=== PATIENT | female | born 1975 | race Hispanic/Latino ===

== ENCOUNTER 2020-07-23 11:59 | Inpatient (IN) | payer OTHER ==
[~2020-07-23] VITALS: Ht 157.5 cm; Wt 169.1 kg
[2020-07-23] MEDS ORDERED: ONDANSETRON HCL 4 MG/2 ML VIAL ONE (12:34)
[2020-07-23] MEDS ORDERED: PHENAZOPYRIDINE HCL 200 MG TABLET ONE (12:34)
[2020-07-23 12:37] LABS: APPEARANCE,URINE CLOUDY (CLEAR); BILIRUBIN,URINE SMALL (NEGATIVE); COLOR,URINE YELLOW (YELLOW); GLUCOSE, URINE (UA) NEGATIVE (NEGATIVE); KETONES,URINE 5 mg/dL (NEGATIVE); LEUKOCYTE ESTERASE ,URINE MODERATE (NEGATIVE); NITRATE,URINE POSITIVE (NEGATIVE); OCCULT BLOOD,URINE MODERATE (NEGATIVE); PROTEIN,URINE 30 mg/dL (NEGATIVE)
[2020-07-23 12:58] LABS: BASOPHILS % (AUTO) 0.5 % (0.0-5.0); LYMPHOCYTES % (AUTO) 7.3 % (21.0-51.0); MEAN CORPUSCULAR HEMOGLOBIN 21.5 pg (27.0-33.0); MEAN CORPUSCULAR VOLUME 71.6 fL (79-99); MONOCYTES % (AUTO) 5.8 % (3.0-13.0); NEUTROPHILS % (AUTO) 85.1 % (40.0-77.0); PLATELET COUNT (AUTO) 465 K/uL (130-400); RED BLOOD CELL COUNT(AUTO) 4.19 MIL/uL (4.00-5.50); RED CELL DISTRIBUTION WIDTH 18.6 % (11.0-15.5)
[2020-07-23 13:08] LABS: POTASSIUM 3.7 mmol/L (3.5-5.1)
[2020-07-23] MEDS ORDERED: IOHEXOL-350 75 ML VIAL IV ONE (13:17)
[2020-07-23 13:19] LABS: ALBUMIN 2.2 g/dL (3.5-5.0); BILIRUBIN,TOTAL 0.7 mg/dL (0.2-1.0); TOTAL PROTEIN, SERUM 7.8 g/dL (6.0-8.3)
[2020-07-23 13:19] LABS: BACTERIA,URINE Many /HPF (None Seen); MUCUS,URINE Few LPF (None Seen); RBC,URINE 26-50 /HPF (0-1); SQUAMOUS EPITHELIAL CELL,UR 30-50 /HPF (0-2); WBC,URINE >100 /HPF (0-1)
[2020-07-23] MEDS ORDERED: ZOSYN 3.375GM+NS 50ML 50 ML IV ONE (14:14)
[2020-07-23] MEDS ORDERED: ACETAMINOPHEN 325 MG TAB PO PRN (19:00)
[2020-07-23 19:29] LABS: HEMOGLOBIN A1C 5.9 % (4.0-6.0)
[2020-07-23] MEDS ORDERED: ACETAMINOPHEN 325 MG TAB ONE (20:21)
[2020-07-23 21:40] VITALS: BP 113/56
[2020-07-23] MEDS: ZOSYN 3.375GM+NS 50ML 50 ML IV SCH (21:54)
[2020-07-23] MEDS: FAMOTIDINE/PF 20 MG/2 ML VIAL IV SCH (21:55)
[2020-07-24] VITALS: BP 139/68
[2020-07-24 04:00] VITALS: BP 120/75
[2020-07-24] MEDS: ZOSYN 3.375GM+NS 50ML 50 ML IV SCH ×3 (05:16→19:50)
[2020-07-24 06:08] LABS: BASOPHILS % (AUTO) 0.6 % (0.0-5.0); EOSINOPHILS % (AUTO) 0.1 % (0.0-8.0); HEMATOCRIT 26.5 % (36-48); MEAN CORPUSCULAR HEMOGLOBIN 21.6 pg (27.0-33.0); MEAN CORPUSCULAR HGB CONC 30.2 g/dL (32.0-36.0); MEAN CORPUSCULAR VOLUME 71.4 fL (79-99); MONOCYTES % (AUTO) 6.2 % (3.0-13.0); PLATELET COUNT (AUTO) 429 K/uL (130-400); RED BLOOD CELL COUNT(AUTO) 3.71 MIL/uL (4.00-5.50); RED CELL DISTRIBUTION WIDTH 18.3 % (11.0-15.5)
[2020-07-24 06:27] LABS: CREATININE 0.8 mg/dL (0.5-1.5); POTASSIUM 3.7 mmol/L (3.5-5.1)
[2020-07-24 06:31] LABS: ALBUMIN 1.9 g/dL (3.5-5.0); BILIRUBIN,TOTAL 0.5 mg/dL (0.2-1.0); TOTAL PROTEIN, SERUM 7.2 g/dL (6.0-8.3)
[2020-07-24 06:35] LABS: % IRON SATURATION 5.2 % (22-44)
[2020-07-24 08:00] VITALS: BP 125/54
[2020-07-24 08:55] LABS: INR 1.29 (0.85-1.15); PROTHROMBIN TIME 13.5 SEC (9.6-11.6)
[2020-07-24 08:56] LABS: PARTIAL THROMBOPLASTIN TIME 27.6 SEC (26.3-35.5)
[2020-07-24] MEDS: FAMOTIDINE/PF 20 MG/2 ML VIAL IV SCH ×2 (09:00→19:50)
[2020-07-24] MEDS ORDERED: ENOXAPARIN SODIUM 40 MG/0.4 ML SYRINGE SQ SCH (09:00)
[2020-07-24 11:00] VITALS: BP 142/75
[2020-07-24] MEDS: MORPHINE SULFATE 2 MG/ML 1ML SYG IV PRN ×2 (14:10→21:19)
[2020-07-24 16:00] VITALS: BP 127/75
[2020-07-24 16:32] LABS: BASOPHILS % (AUTO) 0.5 % (0.0-5.0); EOSINOPHILS % (AUTO) 0.2 % (0.0-8.0); HEMATOCRIT 26.4 % (36-48); LYMPHOCYTES % (AUTO) 11.7 % (21.0-51.0); MEAN CORPUSCULAR HEMOGLOBIN 21.7 pg (27.0-33.0); MEAN CORPUSCULAR HGB CONC 29.9 g/dL (32.0-36.0); MEAN CORPUSCULAR VOLUME 72.5 fL (79-99); MONOCYTES % (AUTO) 5.6 % (3.0-13.0); NEUTROPHILS % (AUTO) 80.2 % (40.0-77.0); NUCLEATED RED BLOOD CELLS 0.1 % (0.0-0.19); PLATELET COUNT (AUTO) 403 K/uL (130-400); RED BLOOD CELL COUNT(AUTO) 3.64 MIL/uL (4.00-5.50); RED CELL DISTRIBUTION WIDTH 18.8 % (11.0-15.5)
[2020-07-24] MEDS: LACTATED RINGERS 1000ML 1,000 ML IV SCH (16:37)
[2020-07-24 17:04] LABS: ABG BASE EXCESS -1.4 mmol/L (-2.0-3.0); ABG OXYGEN SATURATION 96.2 % (95.0-99.0); ABG PCO2 32 mmHg (32-45)
[2020-07-24 17:37] LABS: LYMPHOCYTES % (MANUAL) 13 % (22-44); MAN.DIFF COMMENT-IMPRESSION MANUAL DIFFERENTIAL; MONOCYTES % (MANUAL) 5 % (2-9); PLATELET MORPHOLOGY COMMENT ADEQUATE; SEGMENTED NEUTROPHILS % 82 % (40-70)
[2020-07-24] MEDS: FERROUS SULFATE 325 MG TABLET.DR PO SCH (19:50)
[2020-07-24 20:00] VITALS: BP 116/47
[2020-07-25] VITALS (7 sets, daily range): BP systolic 103–143; BP diastolic 52–75
[2020-07-25] MEDS: LACTATED RINGERS 1000ML 1,000 ML IV SCH ×2 (05:11→18:40)
[2020-07-25] MEDS: ZOSYN 3.375GM+NS 50ML 50 ML IV SCH ×3 (05:11→22:02)
[2020-07-25 05:46] LABS: BASOPHILS % (AUTO) 0.4 % (0.0-5.0); EOSINOPHILS % (AUTO) 0.3 % (0.0-8.0); HEMATOCRIT 24.8 % (36-48); MEAN CORPUSCULAR HEMOGLOBIN 21.4 pg (27.0-33.0); MEAN CORPUSCULAR HGB CONC 30.2 g/dL (32.0-36.0); MEAN CORPUSCULAR VOLUME 70.9 fL (79-99); MONOCYTES % (AUTO) 5.5 % (3.0-13.0); NEUTROPHILS % (AUTO) 79.5 % (40.0-77.0); PLATELET COUNT (AUTO) 375 K/uL (130-400); RED CELL DISTRIBUTION WIDTH 18.5 % (11.0-15.5); WHITE BLOOD COUNT (AUTO) 27.1 K/uL (4.8-10.8)
[2020-07-25] MEDS: FERROUS SULFATE 325 MG TABLET.DR PO SCH ×3 (09:00→22:02)
[2020-07-25] MEDS: FAMOTIDINE/PF 20 MG/2 ML VIAL IV SCH ×2 (10:58→22:02)
[2020-07-26] VITALS (14 sets, daily range): BP systolic 107–152; BP diastolic 59–87
[2020-07-26] MEDS: ZOSYN 3.375GM+NS 50ML 50 ML IV SCH ×3 (05:00→21:00)
[2020-07-26 06:21] LABS: BASOPHILS % (AUTO) 0.5 % (0.0-5.0); EOSINOPHILS % (AUTO) 0.8 % (0.0-8.0); LYMPHOCYTES % (AUTO) 14.3 % (21.0-51.0); MEAN CORPUSCULAR HEMOGLOBIN 21.5 pg (27.0-33.0); MEAN CORPUSCULAR HGB CONC 30.4 g/dL (32.0-36.0); MEAN CORPUSCULAR VOLUME 70.6 fL (79-99); NEUTROPHILS % (AUTO) 76.4 % (40.0-77.0); PLATELET COUNT (AUTO) 354 K/uL (130-400); RED CELL DISTRIBUTION WIDTH 18.6 % (11.0-15.5); WHITE BLOOD COUNT (AUTO) 21.9 K/uL (4.8-10.8)
[2020-07-26 06:30] LABS: CREATININE 0.8 mg/dL (0.5-1.5); POTASSIUM 3.3 mmol/L (3.5-5.1)
[2020-07-26] MEDS: LACTATED RINGERS 1000ML 1,000 ML IV SCH (08:00)
[2020-07-26] MEDS: FERROUS SULFATE 325 MG TABLET.DR PO SCH ×3 (09:00→21:27)
[2020-07-26] MEDS: FAMOTIDINE/PF 20 MG/2 ML VIAL IV SCH ×2 (11:02→21:27)
[2020-07-26] MEDS ORDERED: FENTANYL CITRATE PF 50 MCG/1 ML 2ML VIAL ONE (15:36)
[2020-07-26] MEDS ORDERED: MIDAZOLAM HCL 1 MG/ML 2ML VIAL ONE (15:37)
[2020-07-26] MEDS: MORPHINE SULFATE 2 MG/ML 1ML SYG IV PRN (17:07)
[2020-07-26] MEDS: ONDANSETRON HCL 4 MG/2 ML VIAL IV PRN (17:12)
[2020-07-27] VITALS (7 sets, daily range): BP systolic 94–134; BP diastolic 60–67
[2020-07-27 04:42] LABS: BASOPHILS % (AUTO) 0.4 % (0.0-5.0); HEMATOCRIT 26.8 % (36-48); MEAN CORPUSCULAR HEMOGLOBIN 21.5 pg (27.0-33.0); MEAN CORPUSCULAR HGB CONC 30.6 g/dL (32.0-36.0); MEAN CORPUSCULAR VOLUME 70.2 fL (79-99); MONOCYTES % (AUTO) 3.4 % (3.0-13.0); NEUTROPHILS % (AUTO) 88.9 % (40.0-77.0); NUCLEATED RED BLOOD CELLS 0.1 % (0.0-0.19); PLATELET COUNT (AUTO) 408 K/uL (130-400); RED BLOOD CELL COUNT(AUTO) 3.82 MIL/uL (4.00-5.50); RED CELL DISTRIBUTION WIDTH 18.7 % (11.0-15.5)
[2020-07-27 04:50] LABS: CREATININE 1.3 mg/dL (0.5-1.5); POTASSIUM 3.7 mmol/L (3.5-5.1)
[2020-07-27] MEDS: ZOSYN 3.375GM+NS 50ML 50 ML IV SCH ×3 (05:38→20:40)
[2020-07-27] MEDS: FERROUS SULFATE 325 MG TABLET.DR PO SCH ×3 (10:00→20:40)
[2020-07-27] MEDS: FAMOTIDINE/PF 20 MG/2 ML VIAL IV SCH ×2 (10:00→20:40)
[2020-07-27] MEDS: ACETAMINOPHEN-CODEINE 300/30MG TAB PO PRN (10:01)
[2020-07-27] MEDS ORDERED: LACTULOSE 20 GM/30 ML UDCUP ONE (11:21)
[2020-07-27] MEDS: MORPHINE SULFATE 2 MG/ML 1ML SYG IV PRN ×2 (12:09→21:20)
[2020-07-27] MEDS: LACTULOSE 20 GM/30 ML UDCUP PO SCH ×2 (12:09→20:40)
[2020-07-27 14:11] LABS: CHLAMYDIA DNA N.A.AMPLIFY Negative (Negative)
[2020-07-28 03:00] VITALS: BP 145/69
[2020-07-28] MEDS: MORPHINE SULFATE 2 MG/ML 1ML SYG IV PRN ×4 (03:35→17:46)
[2020-07-28] MEDS: ZOSYN 3.375GM+NS 50ML 50 ML IV SCH ×3 (04:20→21:00)
[2020-07-28 04:56] LABS: BASOPHILS % (AUTO) 0.3 % (0.0-5.0); EOSINOPHILS % (AUTO) 0.5 % (0.0-8.0); HEMATOCRIT 25.9 % (36-48); LYMPHOCYTES % (AUTO) 7.7 % (21.0-51.0); MEAN CORPUSCULAR HEMOGLOBIN 21.8 pg (27.0-33.0); MEAN CORPUSCULAR HGB CONC 31.3 g/dL (32.0-36.0); MEAN CORPUSCULAR VOLUME 69.8 fL (79-99); MONOCYTES % (AUTO) 2.1 % (3.0-13.0); NEUTROPHILS % (AUTO) 86.2 % (40.0-77.0); NUCLEATED RED BLOOD CELLS 0.1 % (0.0-0.19); PLATELET COUNT (AUTO) 405 K/uL (130-400); RED BLOOD CELL COUNT(AUTO) 3.71 MIL/uL (4.00-5.50); RED CELL DISTRIBUTION WIDTH 18.9 % (11.0-15.5); WHITE BLOOD COUNT (AUTO) 23.9 K/uL (4.8-10.8)
[2020-07-28 05:05] LABS: CREATININE 1.1 mg/dL (0.5-1.5); POTASSIUM 3.4 mmol/L (3.5-5.1)
[2020-07-28 09:26] VITALS: BP 125/66
[2020-07-28] MEDS: FAMOTIDINE/PF 20 MG/2 ML VIAL IV SCH ×2 (11:08→21:09)
[2020-07-28] MEDS: FERROUS SULFATE 325 MG TABLET.DR PO SCH ×3 (11:08→22:26)
[2020-07-28] MEDS: LACTULOSE 20 GM/30 ML UDCUP PO SCH ×2 (11:08→22:26)
[2020-07-28 11:38] VITALS: BP 124/83
[2020-07-28] MEDS: ONDANSETRON HCL 4 MG/2 ML VIAL IV PRN (16:05)
[2020-07-28] MEDS: POLYETHYLENE GLYCOL 3350 17 GM POWD.PACK PO SCH (17:46)
[2020-07-28 18:56] VITALS: BP 111/64
[2020-07-28 20:33] VITALS: BP 139/68
[2020-07-28 23:48] VITALS: BP 142/71
[2020-07-29 03:56] VITALS: BP 142/74
[2020-07-29] MEDS: ZOSYN 3.375GM+NS 50ML 50 ML IV SCH ×3 (04:27→20:47)
[2020-07-29 08:37] VITALS: BP 136/75
[2020-07-29] MEDS: LACTULOSE 20 GM/30 ML UDCUP PO SCH ×2 (09:00→21:00)
[2020-07-29] MEDS: POLYETHYLENE GLYCOL 3350 17 GM POWD.PACK PO SCH (09:00)
[2020-07-29] MEDS: FERROUS SULFATE 325 MG TABLET.DR PO SCH ×3 (09:08→20:46)
[2020-07-29] MEDS: FAMOTIDINE/PF 20 MG/2 ML VIAL IV SCH ×2 (09:08→20:46)
[2020-07-29 12:07] VITALS: BP 134/68
[2020-07-29 16:50] VITALS: BP 103/61
[2020-07-29 19:50] VITALS: BP 130/75
[2020-07-29] MEDS: MORPHINE SULFATE 2 MG/ML 1ML SYG IV PRN (20:50)
[2020-07-30] VITALS: BP 112/47
[2020-07-30 04:00] VITALS: BP 130/69
[2020-07-30] MEDS: ZOSYN 3.375GM+NS 50ML 50 ML IV SCH ×3 (04:43→22:30)
[2020-07-30 08:54] LABS: BASOPHILS % (AUTO) 0.4 % (0.0-5.0); EOSINOPHILS % (AUTO) 1.1 % (0.0-8.0); HEMATOCRIT 25.3 % (36-48); MEAN CORPUSCULAR HEMOGLOBIN 21.3 pg (27.0-33.0); MEAN CORPUSCULAR HGB CONC 30.8 g/dL (32.0-36.0); MEAN CORPUSCULAR VOLUME 68.9 fL (79-99); MONOCYTES % (AUTO) 8.9 % (3.0-13.0); NEUTROPHILS % (AUTO) 70.7 % (40.0-77.0); NUCLEATED RED BLOOD CELLS 0.2 % (0.0-0.19); PLATELET COUNT (AUTO) 493 K/uL (130-400); RED BLOOD CELL COUNT(AUTO) 3.67 MIL/uL (4.00-5.50); RED CELL DISTRIBUTION WIDTH 19.1 % (11.0-15.5); WHITE BLOOD COUNT (AUTO) 13.1 K/uL (4.8-10.8)
[2020-07-30 09:55] LABS: CREATININE 0.7 mg/dL (0.5-1.5); POTASSIUM 3.5 mmol/L (3.5-5.1)
[2020-07-30 09:56] VITALS: BP 136/71
[2020-07-30] MEDS: FAMOTIDINE/PF 20 MG/2 ML VIAL IV SCH ×2 (10:21→21:35)
[2020-07-30] MEDS: LACTULOSE 20 GM/30 ML UDCUP PO SCH ×3 (10:21→21:35)
[2020-07-30] MEDS: POLYETHYLENE GLYCOL 3350 17 GM POWD.PACK PO SCH (10:21)
[2020-07-30] MEDS: FERROUS SULFATE 325 MG TABLET.DR PO SCH ×3 (10:23→21:35)
[2020-07-30 13:01] VITALS: BP 136/71
[2020-07-30 17:26] VITALS: BP 123/85
[2020-07-30 20:04] VITALS: BP 135/52
[2020-07-31 00:04] VITALS: BP 118/76
[2020-07-31 04:04] VITALS: BP 109/58
[2020-07-31] MEDS: ZOSYN 3.375GM+NS 50ML 50 ML IV SCH ×3 (06:26→20:57)
[2020-07-31 06:31] LABS: BASOPHILS % (AUTO) 0.5 % (0.0-5.0); EOSINOPHILS % (AUTO) 1.4 % (0.0-8.0); LYMPHOCYTES % (AUTO) 20.2 % (21.0-51.0); MEAN CORPUSCULAR HEMOGLOBIN 21.4 pg (27.0-33.0); MEAN CORPUSCULAR HGB CONC 30.8 g/dL (32.0-36.0); MEAN CORPUSCULAR VOLUME 69.4 fL (79-99); MONOCYTES % (AUTO) 9.6 % (3.0-13.0); NEUTROPHILS % (AUTO) 66.2 % (40.0-77.0); NUCLEATED RED BLOOD CELLS 0.2 % (0.0-0.19); PLATELET COUNT (AUTO) 540 K/uL (130-400); RED CELL DISTRIBUTION WIDTH 18.7 % (11.0-15.5); WHITE BLOOD COUNT (AUTO) 13.2 K/uL (4.8-10.8)
[2020-07-31 06:47] LABS: CREATININE 0.8 mg/dL (0.5-1.5); POTASSIUM 3.3 mmol/L (3.5-5.1)
[2020-07-31 08:00] VITALS: BP 113/71
[2020-07-31] MEDS: POLYETHYLENE GLYCOL 3350 17 GM POWD.PACK PO SCH (10:26)
[2020-07-31] MEDS: FERROUS SULFATE 325 MG TABLET.DR PO SCH ×3 (10:26→20:58)
[2020-07-31] MEDS: FAMOTIDINE/PF 20 MG/2 ML VIAL IV SCH ×2 (10:26→20:58)
[2020-07-31] MEDS: LACTULOSE 20 GM/30 ML UDCUP PO SCH ×2 (10:26→20:57)
[2020-07-31] MEDS ORDERED: POTASSIUM CHLORIDE 20 MEQ ERTAB PO SCH (11:00)
[2020-07-31 12:00] VITALS: BP 121/69
[2020-07-31] MEDS: ACETAMINOPHEN-CODEINE 300/30MG TAB PO PRN (13:22)
[2020-07-31 16:00] VITALS: BP 106/49
[2020-07-31 19:00] VITALS: BP 112/68
[2020-08-01] VITALS (7 sets, daily range): BP systolic 110–142; BP diastolic 54–74
[2020-08-01] MEDS: ZOSYN 3.375GM+NS 50ML 50 ML IV SCH ×3 (05:03→19:34)
[2020-08-01] MEDS: LACTULOSE 20 GM/30 ML UDCUP PO SCH ×2 (09:00→21:00)
[2020-08-01] MEDS: FERROUS SULFATE 325 MG TABLET.DR PO SCH ×3 (09:26→19:34)
[2020-08-01] MEDS: POLYETHYLENE GLYCOL 3350 17 GM POWD.PACK PO SCH (09:26)
[2020-08-01] MEDS: FAMOTIDINE/PF 20 MG/2 ML VIAL IV SCH ×2 (13:30→19:34)
[2020-08-01] MEDS: ACETAMINOPHEN-CODEINE 300/30MG TAB PO PRN (19:34)
[2020-08-02 03:51] VITALS: BP 128/81
[2020-08-02] MEDS: ZOSYN 3.375GM+NS 50ML 50 ML IV SCH ×3 (04:47→21:37)
[2020-08-02 07:35] VITALS: BP 117/77
[2020-08-02] MEDS: FERROUS SULFATE 325 MG TABLET.DR PO SCH ×3 (09:06→21:37)
[2020-08-02] MEDS: LACTULOSE 20 GM/30 ML UDCUP PO SCH ×2 (09:06→21:37)
[2020-08-02] MEDS: POLYETHYLENE GLYCOL 3350 17 GM POWD.PACK PO SCH (09:06)
[2020-08-02] MEDS: FAMOTIDINE/PF 20 MG/2 ML VIAL IV SCH ×2 (09:06→21:37)
[2020-08-02 11:00] VITALS: BP 109/63
[2020-08-02 15:45] VITALS: BP 98/65
[2020-08-02 20:09] VITALS: BP 127/81
[2020-08-02] MEDS: ACETAMINOPHEN-CODEINE 300/30MG TAB PO PRN (21:39)
[2020-08-02 23:47] VITALS: BP 111/74
[2020-08-03 03:15] VITALS: BP 127/64
[2020-08-03] MEDS: ZOSYN 3.375GM+NS 50ML 50 ML IV SCH ×3 (04:56→21:42)
[2020-08-03 05:52] LABS: BASOPHILS % (AUTO) 0.6 % (0.0-5.0); EOSINOPHILS % (AUTO) 2.3 % (0.0-8.0); HEMATOCRIT 24.9 % (36-48); LYMPHOCYTES % (AUTO) 25.3 % (21.0-51.0); MEAN CORPUSCULAR HEMOGLOBIN 21.6 pg (27.0-33.0); MEAN CORPUSCULAR HGB CONC 30.1 g/dL (32.0-36.0); MEAN CORPUSCULAR VOLUME 71.6 fL (79-99); MONOCYTES % (AUTO) 7.8 % (3.0-13.0); NEUTROPHILS % (AUTO) 62.6 % (40.0-77.0); PLATELET COUNT (AUTO) 621 K/uL (130-400); RED BLOOD CELL COUNT(AUTO) 3.48 MIL/uL (4.00-5.50); RED CELL DISTRIBUTION WIDTH 20.7 % (11.0-15.5); WHITE BLOOD COUNT (AUTO) 12.1 K/uL (4.8-10.8)
[2020-08-03 06:03] LABS: CREATININE 0.7 mg/dL (0.5-1.5); POTASSIUM 3.9 mmol/L (3.5-5.1)
[2020-08-03 08:00] VITALS: BP 138/70
[2020-08-03] MEDS: LACTULOSE 20 GM/30 ML UDCUP PO SCH ×2 (09:00→21:42)
[2020-08-03] MEDS: POLYETHYLENE GLYCOL 3350 17 GM POWD.PACK PO SCH (09:00)
[2020-08-03] MEDS: FERROUS SULFATE 325 MG TABLET.DR PO SCH ×3 (10:00→21:42)
[2020-08-03] MEDS: FAMOTIDINE/PF 20 MG/2 ML VIAL IV SCH ×2 (10:01→21:42)
[2020-08-03 12:00] VITALS: BP 138/67
[2020-08-03] MEDS: ACETAMINOPHEN-CODEINE 300/30MG TAB PO PRN (13:03)
[2020-08-03 16:00] VITALS: BP 146/79
[2020-08-03 20:08] VITALS: BP 104/59
[2020-08-04 00:08] VITALS: BP 116/76
[2020-08-04 04:08] VITALS: BP 108/72
[2020-08-04] MEDS: ACETAMINOPHEN-CODEINE 300/30MG TAB PO PRN (04:48)
[2020-08-04] MEDS: ZOSYN 3.375GM+NS 50ML 50 ML IV SCH ×3 (04:49→22:16)
[2020-08-04 05:18] LABS: BASOPHILS % (AUTO) 0.6 % (0.0-5.0); EOSINOPHILS % (AUTO) 1.7 % (0.0-8.0); HEMATOCRIT 25.7 % (36-48); LYMPHOCYTES % (AUTO) 25.2 % (21.0-51.0); MEAN CORPUSCULAR HEMOGLOBIN 21.5 pg (27.0-33.0); MEAN CORPUSCULAR HGB CONC 29.6 g/dL (32.0-36.0); MEAN CORPUSCULAR VOLUME 72.6 fL (79-99); NEUTROPHILS % (AUTO) 63.3 % (40.0-77.0); PLATELET COUNT (AUTO) 616 K/uL (130-400); RED BLOOD CELL COUNT(AUTO) 3.54 MIL/uL (4.00-5.50); WHITE BLOOD COUNT (AUTO) 11.5 K/uL (4.8-10.8)
[2020-08-04 05:30] LABS: CREATININE 0.8 mg/dL (0.5-1.5); POTASSIUM 3.9 mmol/L (3.5-5.1)
[2020-08-04 08:00] VITALS: BP 142/76
[2020-08-04] MEDS: POLYETHYLENE GLYCOL 3350 17 GM POWD.PACK PO SCH (09:00)
[2020-08-04] MEDS: LACTULOSE 20 GM/30 ML UDCUP PO SCH ×2 (09:00→21:00)
[2020-08-04] MEDS: FAMOTIDINE/PF 20 MG/2 ML VIAL IV SCH ×2 (09:08→21:52)
[2020-08-04] MEDS: FERROUS SULFATE 325 MG TABLET.DR PO SCH ×3 (09:08→22:16)
[2020-08-04 11:50] VITALS: BP 116/52
[2020-08-04 16:00] VITALS: BP 134/69
[2020-08-04 20:00] VITALS: BP 150/74
[2020-08-04] MEDS ORDERED: LACTULOSE 20 GM/30 ML UDCUP PO SCH (21:00)
[2020-08-04] MEDS ORDERED: FERROUS SULFATE 325 MG TABLET.DR PO SCH (21:00)
[2020-08-05] VITALS: BP 129/72
[2020-08-05] MEDS: ACETAMINOPHEN 325 MG TAB PO PRN ×2 (01:26→23:04)
[2020-08-05 03:40] VITALS: BP 110/59
[2020-08-05 05:16] LABS: BASOPHILS % (AUTO) 0.7 % (0.0-5.0); EOSINOPHILS % (AUTO) 1.6 % (0.0-8.0); HEMATOCRIT 24.6 % (36-48); LYMPHOCYTES % (AUTO) 23.6 % (21.0-51.0); MEAN CORPUSCULAR HEMOGLOBIN 21.6 pg (27.0-33.0); MEAN CORPUSCULAR HGB CONC 29.7 g/dL (32.0-36.0); MEAN CORPUSCULAR VOLUME 72.8 fL (79-99); MONOCYTES % (AUTO) 7.9 % (3.0-13.0); NEUTROPHILS % (AUTO) 65.4 % (40.0-77.0); PLATELET COUNT (AUTO) 623 K/uL (130-400); RED BLOOD CELL COUNT(AUTO) 3.38 MIL/uL (4.00-5.50); RED CELL DISTRIBUTION WIDTH 21.4 % (11.0-15.5); WHITE BLOOD COUNT (AUTO) 13.8 K/uL (4.8-10.8)
[2020-08-05 05:42] LABS: CREATININE 0.8 mg/dL (0.5-1.5); POTASSIUM 3.5 mmol/L (3.5-5.1)
[2020-08-05] MEDS: ZOSYN 3.375GM+NS 50ML 50 ML IV SCH ×3 (05:45→21:26)
[2020-08-05 07:58] VITALS: BP 141/66
[2020-08-05] MEDS: LACTULOSE 20 GM/30 ML UDCUP PO SCH ×2 (09:00→21:00)
[2020-08-05] MEDS: POLYETHYLENE GLYCOL 3350 17 GM POWD.PACK PO SCH (09:00)
[2020-08-05] MEDS: FAMOTIDINE/PF 20 MG/2 ML VIAL IV SCH ×2 (09:33→21:26)
[2020-08-05] MEDS: FERROUS SULFATE 325 MG TABLET.DR PO SCH ×3 (09:33→21:26)
[2020-08-05 12:00] VITALS: BP 96/77
[2020-08-05 15:53] VITALS: BP 111/55
[2020-08-05] MEDS ORDERED: IOHEXOL-350 75 ML VIAL IV ONE (16:03)
[2020-08-05 20:00] VITALS: BP 109/55
[2020-08-06 00:08] VITALS: BP 136/74
[2020-08-06 03:41] VITALS: BP 131/71
[2020-08-06] MEDS: ZOSYN 3.375GM+NS 50ML 50 ML IV SCH ×3 (04:54→21:10)
[2020-08-06 07:30] VITALS: BP 132/72
[2020-08-06 08:44] LABS: HEMATOCRIT 25.9 % (36-48); MEAN CORPUSCULAR HEMOGLOBIN 22.2 pg (27.0-33.0); MEAN CORPUSCULAR HGB CONC 30.1 g/dL (32.0-36.0); MEAN CORPUSCULAR VOLUME 73.8 fL (79-99); RED BLOOD CELL COUNT(AUTO) 3.51 MIL/uL (4.00-5.50); RED CELL DISTRIBUTION WIDTH 22.7 % (11.0-15.5); WHITE BLOOD COUNT (AUTO) 12.8 K/uL (4.8-10.8)
[2020-08-06] MEDS: POLYETHYLENE GLYCOL 3350 17 GM POWD.PACK PO SCH (09:00)
[2020-08-06] MEDS: LACTULOSE 20 GM/30 ML UDCUP PO SCH ×2 (09:00→21:00)
[2020-08-06] MEDS: FAMOTIDINE/PF 20 MG/2 ML VIAL IV SCH ×2 (09:47→21:11)
[2020-08-06] MEDS: FERROUS SULFATE 325 MG TABLET.DR PO SCH ×3 (09:47→21:11)
[2020-08-06 11:30] VITALS: BP 112/70
[2020-08-06 16:00] VITALS: BP 118/75
[2020-08-06 20:00] VITALS: BP 172/67
[2020-08-07] VITALS (7 sets, daily range): BP systolic 113–154; BP diastolic 57–77
[2020-08-07] MEDS: ZOSYN 3.375GM+NS 50ML 50 ML IV SCH ×3 (05:09→22:06)
[2020-08-07 05:39] LABS: BASOPHILS % (AUTO) 0.9 % (0.0-5.0); EOSINOPHILS % (AUTO) 1.6 % (0.0-8.0); HEMATOCRIT 24.5 % (36-48); LYMPHOCYTES % (AUTO) 23.6 % (21.0-51.0); MEAN CORPUSCULAR HEMOGLOBIN 21.9 pg (27.0-33.0); MEAN CORPUSCULAR HGB CONC 29.8 g/dL (32.0-36.0); MEAN CORPUSCULAR VOLUME 73.6 fL (79-99); MONOCYTES % (AUTO) 8.7 % (3.0-13.0); NEUTROPHILS % (AUTO) 64.6 % (40.0-77.0); PLATELET COUNT (AUTO) 559 K/uL (130-400); RED BLOOD CELL COUNT(AUTO) 3.33 MIL/uL (4.00-5.50); RED CELL DISTRIBUTION WIDTH 22.5 % (11.0-15.5); WHITE BLOOD COUNT (AUTO) 11.3 K/uL (4.8-10.8)
[2020-08-07 06:06] LABS: CREATININE 0.7 mg/dL (0.5-1.5); POTASSIUM 3.7 mmol/L (3.5-5.1)
[2020-08-07] MEDS: LACTULOSE 20 GM/30 ML UDCUP PO SCH ×2 (09:00→22:06)
[2020-08-07] MEDS: FAMOTIDINE/PF 20 MG/2 ML VIAL IV SCH ×2 (09:00→22:05)
[2020-08-07] MEDS: FERROUS SULFATE 325 MG TABLET.DR PO SCH ×3 (09:00→22:06)
[2020-08-07] MEDS: POLYETHYLENE GLYCOL 3350 17 GM POWD.PACK PO SCH (09:00)
[2020-08-08] VITALS (9 sets, daily range): BP systolic 124–141; BP diastolic 55–80
[2020-08-08] MEDS: ZOSYN 3.375GM+NS 50ML 50 ML IV SCH ×2 (04:41→13:00)
[2020-08-08 05:43] LABS: BASOPHILS % (AUTO) 1.2 % (0.0-5.0); HEMATOCRIT 26.8 % (36-48); LYMPHOCYTES % (AUTO) 29.2 % (21.0-51.0); MEAN CORPUSCULAR HEMOGLOBIN 21.4 pg (27.0-33.0); MEAN CORPUSCULAR HGB CONC 28.7 g/dL (32.0-36.0); MEAN CORPUSCULAR VOLUME 74.7 fL (79-99); MONOCYTES % (AUTO) 8.5 % (3.0-13.0); NEUTROPHILS % (AUTO) 58.6 % (40.0-77.0); PLATELET COUNT (AUTO) 630 K/uL (130-400); RED BLOOD CELL COUNT(AUTO) 3.59 MIL/uL (4.00-5.50); RED CELL DISTRIBUTION WIDTH 23.1 % (11.0-15.5); WHITE BLOOD COUNT (AUTO) 8.8 K/uL (4.8-10.8)
[2020-08-08 06:06] LABS: CREATININE 0.8 mg/dL (0.5-1.5)
[2020-08-08] MEDS: LACTULOSE 20 GM/30 ML UDCUP PO SCH (09:00)
[2020-08-08] MEDS: ACETAMINOPHEN-CODEINE 300/30MG TAB PO PRN (09:26)
[2020-08-08] MEDS ORDERED: IOHEXOL-350 50ML VIAL IV ONE (09:56)
[2020-08-08] MEDS ORDERED: LIDOCAINE HCL 1% MDV 50ML VIAL ONE (10:00)
[2020-08-08] MEDS: FAMOTIDINE/PF 20 MG/2 ML VIAL IV SCH (11:11)
[2020-08-08] MEDS: POLYETHYLENE GLYCOL 3350 17 GM POWD.PACK PO SCH (11:11)
[2020-08-08] MEDS: FERROUS SULFATE 325 MG TABLET.DR PO SCH (11:11)
[2020-08-28] MEDS ORDERED: POLYETHYLENE GLYCOL 3350 17 GM POWD.PACK PO SCH (09:00)
== END 2020-08-08 18:50 | disposition home or self-care (01) | DRG 871 ==
LOC: EDH 11:59 → EDHIP 12:00 → 3BH 20:03
PROVIDERS: ADMIT Hospitalist; ATTEND Hospitalist
PROC: 0W9J30Z Drainage of Pelvic Cavity with Drainage Device, Percutaneous Approach (ICD-10-PCS; principal; 2020-07-26)
PROC: BR1C1ZZ Fluoroscopy of Pelvis using Low Osmolar Contrast (ICD-10-PCS; 2020-08-08)
DX: A41.9 Sepsis, unspecified organism (principal); E43 Unspecified severe protein-calorie malnutrition; N39.0 Urinary tract infection, site not specified; Z68.44 Body mass index [BMI] 60.0-69.9, adult; N73.9 Female pelvic inflammatory disease, unspecified; E66.01 Morbid (severe) obesity due to excess calories; Z20.822 Contact with and (suspected) exposure to COVID-19; D50.9 Iron deficiency anemia, unspecified; E11.65 Type 2 diabetes mellitus with hyperglycemia; I10 Essential (primary) hypertension; K59.00 Constipation, unspecified; Z90.49 Acquired absence of other specified parts of digestive tract; Z79.84 Long term (current) use of oral hypoglycemic drugs
CPT/HCPCS: 36415; 36600; 49424; 71045; 74018; 74176; 74177; 75989; 76080; 77012; 80048; 80053; 81001; 81025; 82435; 82803; 82947; 82948; 83036; 83540; 83550; 83605; 83690; 84132; 84145; 84295; 85018; 85025; 85027; 85610; 85730; 87040; 87070; 87076; 87077; 87088; 87186; 87426; 87486; 87797; 94660; 97039; 99291; C1894; G0378; J2250; J2405; J2543; J3010; J3490; J7120; Q9967; U0003

== ENCOUNTER 2020-08-27 18:57 | Inpatient (IN) | payer OTHER, SELFPAY ==
[~2020-08-27] VITALS: Ht 157.5 cm; Wt 156.6 kg
[2020-08-27] MEDS ORDERED: PROCHLORPERAZINE 10MG/2ML INJ ONE (19:38)
[2020-08-27] MEDS ORDERED: 0.9%NACL 1000ML 1,000 ML IV ONE (19:38)
[2020-08-27] MEDS ORDERED: DiphenhydrAMINE HCL 50 MG/ML VIAL ONE (19:38)
[2020-08-27 19:41] LABS: HCG,QUAL RESULT NEGATIVE (NEGATIVE)
[2020-08-27 19:44] LABS: APPEARANCE,URINE TURBID (CLEAR); BILIRUBIN,URINE NEGATIVE (NEGATIVE); COLOR,URINE RED (YELLOW); GLUCOSE, URINE (UA) NEGATIVE (NEGATIVE); KETONES,URINE 5 mg/dL (NEGATIVE); LEUKOCYTE ESTERASE ,URINE MODERATE (NEGATIVE); NITRATE,URINE POSITIVE (NEGATIVE); OCCULT BLOOD,URINE LARGE (NEGATIVE); PH,URINE 6.5 (5.0-8.0); PROTEIN,URINE 100 mg/dL (NEGATIVE); UROBILINOGEN,URINE >=8.0 mg/dL (0.2-1.0)
[2020-08-27 19:49] LABS: BACTERIA,URINE Rare /HPF (None Seen); RBC,URINE TNTC /HPF (0-1); SQUAMOUS EPITHELIAL CELL,UR None Seen /HPF (0-2)
[2020-08-27 19:57] LABS: BASOPHILS % (AUTO) 0.6 % (0.0-5.0); EOSINOPHILS % (AUTO) 1.3 % (0.0-8.0); HEMATOCRIT 28.8 % (36-48); MEAN CORPUSCULAR HEMOGLOBIN 21.3 pg (27.0-33.0); MEAN CORPUSCULAR HGB CONC 29.9 g/dL (32.0-36.0); MEAN CORPUSCULAR VOLUME 71.3 fL (79-99); MONOCYTES % (AUTO) 7.9 % (3.0-13.0); NEUTROPHILS % (AUTO) 71.8 % (40.0-77.0); PLATELET COUNT (AUTO) 417 K/uL (130-400); RED BLOOD CELL COUNT(AUTO) 4.04 MIL/uL (4.00-5.50); RED CELL DISTRIBUTION WIDTH 20.8 % (11.0-15.5); WHITE BLOOD COUNT (AUTO) 14.2 K/uL (4.8-10.8)
[2020-08-27 20:07] LABS: POTASSIUM 3.5 mmol/L (3.5-5.1)
[2020-08-27 20:12] LABS: ALBUMIN 2.2 g/dL (3.5-5.0); BILIRUBIN,TOTAL 0.5 mg/dL (0.2-1.0); TOTAL PROTEIN, SERUM 8.6 g/dL (6.0-8.3)
[2020-08-27] MEDS ORDERED: LEVOFLOXACIN 500 MG/D5W 100 ML 100 ML ONE (21:01)
[2020-08-27] MEDS ORDERED: ZOSYN 3.375GM+NS 50ML 50 ML IV ONE (21:01)
[2020-08-27] MEDS ORDERED: ACETAMINOPHEN 325 MG TAB PO PRN (21:30)
[2020-08-27] MEDS ORDERED: MORPHINE 4 MG SYG IV PRN (21:30)
[2020-08-27] MEDS: 0.9%NACL 1000ML 1,000 ML IV SCH (21:30)
[2020-08-28] MEDS ORDERED: MORPHINE 2 MG SYG ONE (01:16)
[2020-08-28] MEDS ORDERED: ACETAMINOPHEN 325 MG TAB ONE (01:17)
[2020-08-28] MEDS ORDERED: ONDANSETRON 4MG INJ ONE (02:22)
[2020-08-28] MEDS ORDERED: KETOROLAC 30MG VIAL (30MG/ML) ONE (03:35)
[2020-08-28 07:03] LABS: RETICULOCYTE % (AUTO) 1.75 % (0.42-2.23)
[2020-08-28 07:13] LABS: INR 1.28 (0.85-1.15); PROTHROMBIN TIME 13.6 SEC (9.6-11.6)
[2020-08-28 07:15] LABS: PARTIAL THROMBOPLASTIN TIME 25.1 SEC (26.3-35.5)
[2020-08-28] MEDS: 0.9%NACL 1000ML 1,000 ML IV SCH ×3 (07:30→20:18)
[2020-08-28 07:32] LABS: % IRON SATURATION 4.9 % (22-44)
[2020-08-28] MEDS ORDERED: ZOSYN 3.375GM+NS 50ML 50 ML IV ONE (08:23)
[2020-08-28] MEDS ORDERED: FAMOTIDINE 20MG VIAL IV ONE (08:24)
[2020-08-28 09:00] VITALS: BP 103/59
[2020-08-28] MEDS ORDERED: EPOETIN ALFA-EPBX (NON-ESRD) 10,000 UNIT/ML VIAL SQ SCH (09:47)
[2020-08-28] MEDS ORDERED: COMPOUND IV MISC 1 EACH IVSOLN MISC PRN (10:00)
[2020-08-28 11:42] VITALS: BP 92/61
[2020-08-28] MEDS: IRON SUCROSE COMPLEX 300 MG in 0.9% NACL 250ML 250 ML IV SCH (11:58)
[2020-08-28] MEDS: FAMOTIDINE 20MG VIAL IV SCH ×2 (12:02→20:18)
[2020-08-28] MEDS: ENOXAPARIN SODIUM 40 MG/0.4 ML SYRINGE SQ SCH (12:05)
[2020-08-28] MEDS: FLUCONAZOLE 200 MG/NS 100 ML 100 ML IV SCH (14:04)
[2020-08-28 16:00] VITALS: BP 99/59
[2020-08-28] MEDS: ZOSYN 3.375GM+NS 50ML 50 ML IV SCH ×2 (16:13→20:18)
[2020-08-28 19:51] VITALS: BP 96/59
[2020-08-29] VITALS (7 sets, daily range): BP systolic 91–133; BP diastolic 53–81
[2020-08-29] MEDS: ONDANSETRON 4MG INJ IV PRN (02:28)
[2020-08-29] MEDS: MORPHINE 2 MG SYG IV PRN (02:40)
[2020-08-29] MEDS: ZOSYN 3.375GM+NS 50ML 50 ML IV SCH ×3 (04:29→20:22)
[2020-08-29] MEDS: 0.9%NACL 1000ML 1,000 ML IV SCH ×3 (05:47→22:50)
[2020-08-29 08:50] LABS: BASOPHILS % (AUTO) 0.6 % (0.0-5.0); EOSINOPHILS % (AUTO) 2.8 % (0.0-8.0); HEMATOCRIT 26.6 % (36-48); LYMPHOCYTES % (AUTO) 9.4 % (21.0-51.0); MEAN CORPUSCULAR HGB CONC 29.3 g/dL (32.0-36.0); MEAN CORPUSCULAR VOLUME 71.7 fL (79-99); MONOCYTES % (AUTO) 5.6 % (3.0-13.0); NUCLEATED RED BLOOD CELLS 0.1 % (0.0-0.19); PLATELET COUNT (AUTO) 279 K/uL (130-400); RED BLOOD CELL COUNT(AUTO) 3.71 MIL/uL (4.00-5.50); RED CELL DISTRIBUTION WIDTH 21.3 % (11.0-15.5); WHITE BLOOD COUNT (AUTO) 17.8 K/uL (4.8-10.8)
[2020-08-29] MEDS: ENOXAPARIN SODIUM 40 MG/0.4 ML SYRINGE SQ SCH (09:00)
[2020-08-29 09:25] LABS: ALBUMIN 1.7 g/dL (3.5-5.0); BILIRUBIN,TOTAL 0.5 mg/dL (0.2-1.0); CREATININE 1.1 mg/dL (0.5-1.5); POTASSIUM 3.3 mmol/L (3.5-5.1)
[2020-08-29] MEDS: FAMOTIDINE 20MG VIAL IV SCH ×2 (09:28→20:22)
[2020-08-29] MEDS: IRON SUCROSE COMPLEX 300 MG in 0.9% NACL 250ML 250 ML IV SCH (09:29)
[2020-08-29] MEDS: FLUCONAZOLE 200 MG/NS 100 ML 100 ML IV SCH (11:53)
[2020-08-29] MEDS ORDERED: DIATR MEGLU/DIATRIZOATE SODIUM 30 ML BOTTLE ONE (13:37)
[2020-08-29] MEDS ORDERED: IOHEXOL-350 75 ML VIAL IV ONE (16:48)
[2020-08-29] MEDS ORDERED: IOHEXOL 350 MG/ML 100ML INFUS..BTL IV ONE (16:49)
[2020-08-30] MEDS: ZOSYN 3.375GM+NS 50ML 50 ML IV SCH ×3 (03:30→20:37)
[2020-08-30] MEDS: 0.9%NACL 1000ML 1,000 ML IV SCH ×3 (03:30→23:34)
[2020-08-30] MEDS: ONDANSETRON 4MG INJ IV PRN ×2 (03:31→20:37)
[2020-08-30] MEDS: MORPHINE 2 MG SYG IV PRN ×2 (03:38→20:37)
[2020-08-30 03:55] VITALS: BP 112/70
[2020-08-30 07:29] VITALS: BP 124/73
[2020-08-30] MEDS: IRON SUCROSE COMPLEX 300 MG in 0.9% NACL 250ML 250 ML IV SCH (09:06)
[2020-08-30] MEDS: FAMOTIDINE 20MG VIAL IV SCH ×2 (09:06→20:37)
[2020-08-30 10:32] LABS: BASOPHILS % (AUTO) 1.2 % (0.0-5.0); EOSINOPHILS % (AUTO) 5.2 % (0.0-8.0); LYMPHOCYTES % (AUTO) 19.1 % (21.0-51.0); MEAN CORPUSCULAR HEMOGLOBIN 21.4 pg (27.0-33.0); MEAN CORPUSCULAR VOLUME 71.4 fL (79-99); MONOCYTES % (AUTO) 7.4 % (3.0-13.0); NEUTROPHILS % (AUTO) 65.2 % (40.0-77.0); NUCLEATED RED BLOOD CELLS 0.2 % (0.0-0.19); PLATELET COUNT (AUTO) 310 K/uL (130-400); RED BLOOD CELL COUNT(AUTO) 3.64 MIL/uL (4.00-5.50); RED CELL DISTRIBUTION WIDTH 21.4 % (11.0-15.5); WHITE BLOOD COUNT (AUTO) 9.8 K/uL (4.8-10.8)
[2020-08-30 10:50] LABS: ALBUMIN 1.8 g/dL (3.5-5.0); BILIRUBIN,TOTAL 0.5 mg/dL (0.2-1.0); CREATININE 0.8 mg/dL (0.5-1.5); POTASSIUM 3.3 mmol/L (3.5-5.1); TOTAL PROTEIN, SERUM 7.1 g/dL (6.0-8.3)
[2020-08-30 11:42] VITALS: BP 134/83
[2020-08-30] MEDS: FLUCONAZOLE 200 MG/NS 100 ML 100 ML IV SCH (12:22)
[2020-08-30] MEDS: ENOXAPARIN SODIUM 40 MG/0.4 ML SYRINGE SQ SCH (12:23)
[2020-08-30 17:01] VITALS: BP 139/78
[2020-08-30 20:23] VITALS: BP 136/80
[2020-08-31 00:06] VITALS: BP 123/52
[2020-08-31] MEDS: ONDANSETRON 4MG INJ IV PRN (02:02)
[2020-08-31 04:58] VITALS: BP 122/60
[2020-08-31] MEDS: 0.9%NACL 1000ML 1,000 ML IV SCH ×3 (06:24→23:34)
[2020-08-31] MEDS: ZOSYN 3.375GM+NS 50ML 50 ML IV SCH ×3 (06:24→20:50)
[2020-08-31 07:30] VITALS: BP 118/62
[2020-08-31] MEDS: ENOXAPARIN SODIUM 40 MG/0.4 ML SYRINGE SQ SCH (09:25)
[2020-08-31] MEDS: FAMOTIDINE 20MG VIAL IV SCH ×2 (09:25→20:50)
[2020-08-31] MEDS: IRON SUCROSE COMPLEX 300 MG in 0.9% NACL 250ML 250 ML IV SCH (10:12)
[2020-08-31 11:00] VITALS: BP 121/65
[2020-08-31] MEDS: FLUCONAZOLE 200 MG/NS 100 ML 100 ML IV SCH (12:11)
[2020-08-31 16:00] VITALS: BP 128/60
[2020-08-31] MEDS ORDERED: LACTULOSE 20 GM/30 ML UDCUP PO PRN (18:30)
[2020-08-31] MEDS ORDERED: LACTULOSE 20 GM/30 ML UDCUP PO ONE (18:30)
[2020-08-31 20:20] VITALS: BP 132/60
[2020-08-31] MEDS: MORPHINE 2 MG SYG IV PRN (21:20)
[2020-09-01 00:01] VITALS: BP 125/72
[2020-09-01 04:15] VITALS: BP 118/69
[2020-09-01] MEDS: ZOSYN 3.375GM+NS 50ML 50 ML IV SCH ×3 (05:49→21:13)
[2020-09-01 06:05] LABS: BASOPHILS % (AUTO) 1.8 % (0.0-5.0); MEAN CORPUSCULAR HEMOGLOBIN 21.4 pg (27.0-33.0); MEAN CORPUSCULAR VOLUME 71.2 fL (79-99); MONOCYTES % (AUTO) 8.2 % (3.0-13.0); NEUTROPHILS % (AUTO) 40.8 % (40.0-77.0); NUCLEATED RED BLOOD CELLS 0.8 % (0.0-0.19); PLATELET COUNT (AUTO) 346 K/uL (130-400); RED BLOOD CELL COUNT(AUTO) 3.79 MIL/uL (4.00-5.50); RED CELL DISTRIBUTION WIDTH 21.7 % (11.0-15.5); WHITE BLOOD COUNT (AUTO) 7.4 K/uL (4.8-10.8)
[2020-09-01 06:16] LABS: CREATININE 0.7 mg/dL (0.5-1.5); POTASSIUM 3.1 mmol/L (3.5-5.1)
[2020-09-01] MEDS: 0.9%NACL 1000ML 1,000 ML IV SCH ×2 (07:34→14:57)
[2020-09-01 08:00] VITALS: BP 130/63
[2020-09-01] MEDS: FAMOTIDINE 20MG VIAL IV SCH ×2 (09:21→21:13)
[2020-09-01] MEDS: ENOXAPARIN SODIUM 40 MG/0.4 ML SYRINGE SQ SCH (09:21)
[2020-09-01] MEDS: IRON SUCROSE COMPLEX 300 MG in 0.9% NACL 250ML 250 ML IV SCH (09:30)
[2020-09-01 11:53] VITALS: BP 128/68
[2020-09-01] MEDS: FLUCONAZOLE 200 MG/NS 100 ML 100 ML IV SCH (12:28)
[2020-09-01] MEDS ORDERED: LIDOCAINE HCL-MPF 1% 2ML VIAL IV PRN (14:45)
[2020-09-01] MEDS ORDERED: POTASSIUM CHLORIDE 20MEQ/100ML 100 ML IV PRN (14:45)
[2020-09-01] MEDS: KCL 20 MEQ ERTAB PO SCH (14:57)
[2020-09-01 15:59] VITALS: BP 135/79
[2020-09-01 19:56] VITALS: BP 129/77
[2020-09-02] VITALS (7 sets, daily range): BP systolic 124–139; BP diastolic 65–82
[2020-09-02] MEDS: ACETAMINOPHEN 325 MG TAB PO PRN (03:08)
[2020-09-02] MEDS: ZOSYN 3.375GM+NS 50ML 50 ML IV SCH ×3 (06:00→20:56)
[2020-09-02] MEDS: FAMOTIDINE 20MG VIAL IV SCH ×2 (09:55→20:56)
[2020-09-02] MEDS: ENOXAPARIN SODIUM 40 MG/0.4 ML SYRINGE SQ SCH (09:55)
[2020-09-02] MEDS: IRON SUCROSE COMPLEX 300 MG in 0.9% NACL 250ML 250 ML IV SCH (09:56)
[2020-09-02] MEDS: FLUCONAZOLE 200 MG/NS 100 ML 100 ML IV SCH (13:39)
[2020-09-02] MEDS: KCL 20 MEQ ERTAB PO SCH (15:22)
[2020-09-02] MEDS: 0.9%NACL 1000ML 1,000 ML IV SCH (20:56)
[2020-09-03] MEDS ORDERED: MORPHINE 4 MG SYG ONE (03:21)
[2020-09-03] MEDS ORDERED: MORPHINE 4 MG SYG IV PRN (03:30)
[2020-09-03] MEDS ORDERED: MORPHINE 2 MG SYG IVP PRN (03:30)
[2020-09-03 04:01] VITALS: BP 124/73
[2020-09-03] MEDS: ZOSYN 3.375GM+NS 50ML 50 ML IV SCH ×3 (04:45→21:36)
[2020-09-03] MEDS: 0.9%NACL 1000ML 1,000 ML IV SCH ×2 (04:46→16:19)
[2020-09-03 06:14] LABS: BASOPHILS % (AUTO) 1.2 % (0.0-5.0); EOSINOPHILS % (AUTO) 3.1 % (0.0-8.0); HEMATOCRIT 29.5 % (36-48); LYMPHOCYTES % (AUTO) 32.8 % (21.0-51.0); MEAN CORPUSCULAR HEMOGLOBIN 21.5 pg (27.0-33.0); MEAN CORPUSCULAR HGB CONC 29.8 g/dL (32.0-36.0); MEAN CORPUSCULAR VOLUME 72.1 fL (79-99); MONOCYTES % (AUTO) 6.8 % (3.0-13.0); NEUTROPHILS % (AUTO) 51.4 % (40.0-77.0); NUCLEATED RED BLOOD CELLS 0.8 % (0.0-0.19); PLATELET COUNT (AUTO) 337 K/uL (130-400); RED BLOOD CELL COUNT(AUTO) 4.09 MIL/uL (4.00-5.50); RED CELL DISTRIBUTION WIDTH 23.3 % (11.0-15.5); WHITE BLOOD COUNT (AUTO) 9.9 K/uL (4.8-10.8)
[2020-09-03 06:23] LABS: CREATININE 0.6 mg/dL (0.5-1.5); POTASSIUM 3.4 mmol/L (3.5-5.1)
[2020-09-03 08:00] VITALS: BP 126/62
[2020-09-03] MEDS: IRON SUCROSE COMPLEX 300 MG in 0.9% NACL 250ML 250 ML IV SCH (09:00)
[2020-09-03] MEDS ORDERED: DIATR MEGLU/DIATRIZOATE SODIUM 30 ML BOTTLE ONE ×2 (09:11→09:12)
[2020-09-03] MEDS ORDERED: IOHEXOL 350 MG/ML 100ML INFUS..BTL IV ONE (09:11)
[2020-09-03 12:00] VITALS: BP 137/77
[2020-09-03] MEDS: ENOXAPARIN SODIUM 40 MG/0.4 ML SYRINGE SQ SCH (14:06)
[2020-09-03] MEDS: FAMOTIDINE 20MG VIAL IV SCH ×2 (14:06→21:36)
[2020-09-03] MEDS: FLUCONAZOLE 200 MG/NS 100 ML 100 ML IV SCH (14:07)
[2020-09-03] MEDS: KCL 20 MEQ ERTAB PO SCH (14:09)
[2020-09-03 16:00] VITALS: BP 128/78
[2020-09-03 19:00] VITALS: BP 127/89
[2020-09-04] VITALS: BP 133/92
[2020-09-04] MEDS: 0.9%NACL 1000ML 1,000 ML IV SCH ×3 (00:38→14:10)
[2020-09-04 04:00] VITALS: BP 131/85
[2020-09-04 04:18] LABS: BASOPHILS % (AUTO) 1.2 % (0.0-5.0); EOSINOPHILS % (AUTO) 3.1 % (0.0-8.0); HEMATOCRIT 30.7 % (36-48); LYMPHOCYTES % (AUTO) 33.8 % (21.0-51.0); MEAN CORPUSCULAR HEMOGLOBIN 21.5 pg (27.0-33.0); MEAN CORPUSCULAR VOLUME 74.3 fL (79-99); MONOCYTES % (AUTO) 6.5 % (3.0-13.0); NEUTROPHILS % (AUTO) 52.9 % (40.0-77.0); NUCLEATED RED BLOOD CELLS 0.3 % (0.0-0.19); PLATELET COUNT (AUTO) 322 K/uL (130-400); RED BLOOD CELL COUNT(AUTO) 4.13 MIL/uL (4.00-5.50); RED CELL DISTRIBUTION WIDTH 23.7 % (11.0-15.5); WHITE BLOOD COUNT (AUTO) 8.7 K/uL (4.8-10.8)
[2020-09-04 04:25] LABS: CREATININE 0.6 mg/dL (0.5-1.5); MAGNESIUM 1.4 mg/dL (1.80-2.40); POTASSIUM 3.5 mmol/L (3.5-5.1)
[2020-09-04] MEDS: ZOSYN 3.375GM+NS 50ML 50 ML IV SCH ×3 (05:48→20:00)
[2020-09-04 08:22] VITALS: BP 137/92
[2020-09-04] MEDS: FAMOTIDINE 20MG VIAL IV SCH ×2 (09:33→20:00)
[2020-09-04] MEDS: IRON SUCROSE COMPLEX 300 MG in 0.9% NACL 250ML 250 ML IV SCH (09:33)
[2020-09-04] MEDS: ENOXAPARIN SODIUM 40 MG/0.4 ML SYRINGE SQ SCH (09:33)
[2020-09-04] MEDS: POTASSIUM CHLORIDE 10% ELIXIR 20 MEQ/15 ML UDCUP PO PRN (11:27)
[2020-09-04] MEDS: MAGNESIUM 2GM PREMIX 50ML 50 ML IV PRN (11:27)
[2020-09-04] MEDS: FLUCONAZOLE 200 MG/NS 100 ML 100 ML IV SCH (12:19)
[2020-09-04 12:31] VITALS: BP 124/79
[2020-09-04] MEDS: KCL 20 MEQ ERTAB PO SCH (14:10)
[2020-09-04 18:16] VITALS: BP 128/87
[2020-09-04] MEDS: KCL 20 MEQ ERTAB PO PRN (20:11)
[2020-09-05] VITALS: BP 122/78
[2020-09-05 04:00] VITALS: BP 117/81
[2020-09-05] MEDS: 0.9%NACL 1000ML 1,000 ML IV SCH ×3 (04:00→23:34)
[2020-09-05] MEDS: ZOSYN 3.375GM+NS 50ML 50 ML IV SCH ×3 (04:12→21:39)
[2020-09-05 06:11] LABS: BASOPHILS % (AUTO) 0.9 % (0.0-5.0); EOSINOPHILS % (AUTO) 2.8 % (0.0-8.0); HEMATOCRIT 32.1 % (36-48); LYMPHOCYTES % (AUTO) 32.2 % (21.0-51.0); MEAN CORPUSCULAR HEMOGLOBIN 21.9 pg (27.0-33.0); MEAN CORPUSCULAR HGB CONC 29.9 g/dL (32.0-36.0); MEAN CORPUSCULAR VOLUME 73.3 fL (79-99); MONOCYTES % (AUTO) 6.9 % (3.0-13.0); NEUTROPHILS % (AUTO) 56.2 % (40.0-77.0); NUCLEATED RED BLOOD CELLS 0.3 % (0.0-0.19); PLATELET COUNT (AUTO) 316 K/uL (130-400); RED BLOOD CELL COUNT(AUTO) 4.38 MIL/uL (4.00-5.50); RED CELL DISTRIBUTION WIDTH 24.8 % (11.0-15.5); WHITE BLOOD COUNT (AUTO) 8.8 K/uL (4.8-10.8)
[2020-09-05 06:38] LABS: CREATININE 0.6 mg/dL (0.5-1.5); POTASSIUM 3.5 mmol/L (3.5-5.1)
[2020-09-05] MEDS: KCL 20 MEQ ERTAB PO PRN ×2 (07:08→10:39)
[2020-09-05 07:30] VITALS: BP 125/76
[2020-09-05] MEDS: FAMOTIDINE 20MG VIAL IV SCH ×2 (10:25→21:39)
[2020-09-05] MEDS: IRON SUCROSE COMPLEX 300 MG in 0.9% NACL 250ML 250 ML IV SCH (10:25)
[2020-09-05] MEDS: ACETAMINOPHEN 325 MG TAB PO PRN (10:25)
[2020-09-05 11:00] VITALS: BP 123/72
[2020-09-05] MEDS ORDERED: HYDROCODONE/ACETAMINOPHEN 5/325 MG TAB PO PRN (11:15)
[2020-09-05] MEDS: FLUCONAZOLE 200 MG/NS 100 ML 100 ML IV SCH (13:25)
[2020-09-05] MEDS: ENOXAPARIN SODIUM 40 MG/0.4 ML SYRINGE SQ SCH (13:34)
[2020-09-05] MEDS: KCL 20 MEQ ERTAB PO SCH (13:34)
[2020-09-05 16:00] VITALS: BP 115/73
[2020-09-05 20:32] VITALS: BP 130/78
[2020-09-06 00:10] VITALS: BP 128/84
[2020-09-06 04:18] VITALS: BP 129/69
[2020-09-06] MEDS: ZOSYN 3.375GM+NS 50ML 50 ML IV SCH ×3 (04:29→20:58)
[2020-09-06] MEDS: 0.9%NACL 1000ML 1,000 ML IV SCH ×2 (04:29→09:07)
[2020-09-06] MEDS: FAMOTIDINE 20MG VIAL IV SCH ×2 (09:08→20:58)
[2020-09-06] MEDS: ENOXAPARIN SODIUM 40 MG/0.4 ML SYRINGE SQ SCH (09:08)
[2020-09-06] MEDS: IRON SUCROSE COMPLEX 300 MG in 0.9% NACL 250ML 250 ML IV SCH (09:08)
[2020-09-06] MEDS: KCL 20 MEQ ERTAB PO PRN ×2 (09:09→13:43)
[2020-09-06 11:26] VITALS: BP 119/75
[2020-09-06] MEDS: FLUCONAZOLE 200 MG/NS 100 ML 100 ML IV SCH (13:40)
[2020-09-06] MEDS: KCL 20 MEQ ERTAB PO SCH (13:44)
[2020-09-06 17:28] VITALS: BP 136/83
[2020-09-06] MEDS: MAGNESIUM 2GM PREMIX 50ML 50 ML IV PRN (17:33)
[2020-09-06 20:17] VITALS: BP 134/76
[2020-09-06 23:56] VITALS: BP 128/74
[2020-09-07] MEDS: 0.9%NACL 1000ML 1,000 ML IV SCH ×3 (02:30→15:37)
[2020-09-07 04:06] VITALS: BP 122/76
[2020-09-07] MEDS: ZOSYN 3.375GM+NS 50ML 50 ML IV SCH ×3 (05:55→20:07)
[2020-09-07 06:25] LABS: HEMATOCRIT 34.1 % (36-48); MEAN CORPUSCULAR HGB CONC 29.3 g/dL (32.0-36.0); MEAN CORPUSCULAR VOLUME 75.1 fL (79-99); PLATELET COUNT (AUTO) 316 K/uL (130-400); RED BLOOD CELL COUNT(AUTO) 4.54 MIL/uL (4.00-5.50); RED CELL DISTRIBUTION WIDTH 25.7 % (11.0-15.5); WHITE BLOOD COUNT (AUTO) 7.9 K/uL (4.8-10.8)
[2020-09-07 06:44] LABS: ALBUMIN 2.5 g/dL (3.5-5.0); BILIRUBIN,TOTAL 0.5 mg/dL (0.2-1.0); CREATININE 0.8 mg/dL (0.5-1.5); POTASSIUM 3.4 mmol/L (3.5-5.1)
[2020-09-07] MEDS: KCL 20 MEQ ERTAB PO PRN (06:49)
[2020-09-07 08:32] VITALS: BP 132/78
[2020-09-07] MEDS: ENOXAPARIN SODIUM 40 MG/0.4 ML SYRINGE SQ SCH (08:47)
[2020-09-07] MEDS: FAMOTIDINE 20MG VIAL IV SCH ×2 (08:47→20:07)
[2020-09-07] MEDS: IRON SUCROSE COMPLEX 300 MG in 0.9% NACL 250ML 250 ML IV SCH (10:30)
[2020-09-07] MEDS: FLUCONAZOLE 200 MG/NS 100 ML 100 ML IV SCH (12:10)
[2020-09-07] MEDS: KCL 20 MEQ ERTAB PO SCH (13:32)
[2020-09-07 14:25] VITALS: BP 132/72
[2020-09-07 16:00] VITALS: BP 108/65
[2020-09-07 20:14] VITALS: BP 154/74
[2020-09-08 00:02] VITALS: BP 143/79
[2020-09-08] MEDS: ZOSYN 3.375GM+NS 50ML 50 ML IV SCH ×3 (04:08→20:01)
[2020-09-08] MEDS: 0.9%NACL 1000ML 1,000 ML IV SCH ×3 (04:08→15:05)
[2020-09-08 04:11] VITALS: BP 115/75
[2020-09-08 05:41] LABS: HEMATOCRIT 37.9 % (36-48); MEAN CORPUSCULAR HEMOGLOBIN 22.2 pg (27.0-33.0); MEAN CORPUSCULAR HGB CONC 29.6 g/dL (32.0-36.0); RED BLOOD CELL COUNT(AUTO) 5.05 MIL/uL (4.00-5.50); RED CELL DISTRIBUTION WIDTH 26.4 % (11.0-15.5); WHITE BLOOD COUNT (AUTO) 8.6 K/uL (4.8-10.8)
[2020-09-08 06:01] LABS: ALBUMIN 2.7 g/dL (3.5-5.0); BILIRUBIN,TOTAL 0.6 mg/dL (0.2-1.0); CREATININE 0.7 mg/dL (0.5-1.5); MAGNESIUM 1.8 mg/dL (1.80-2.40); POTASSIUM 3.7 mmol/L (3.5-5.1); TOTAL PROTEIN, SERUM 8.9 g/dL (6.0-8.3)
[2020-09-08] MEDS: KCL 20 MEQ ERTAB PO PRN (06:13)
[2020-09-08] MEDS ORDERED: DIATR MEGLU/DIATRIZOATE SODIUM 30 ML BOTTLE ONE (07:23)
[2020-09-08 08:00] VITALS: BP 103/56
[2020-09-08] MEDS: FAMOTIDINE 20MG VIAL IV SCH ×2 (08:19→20:01)
[2020-09-08] MEDS: ENOXAPARIN SODIUM 40 MG/0.4 ML SYRINGE SQ SCH (08:21)
[2020-09-08] MEDS: IRON SUCROSE COMPLEX 300 MG in 0.9% NACL 250ML 250 ML IV SCH (09:42)
[2020-09-08 12:00] VITALS: BP 111/76
[2020-09-08] MEDS: FLUCONAZOLE 200 MG/NS 100 ML 100 ML IV SCH (12:51)
[2020-09-08] MEDS ORDERED: IOHEXOL 350 MG/ML 100ML INFUS..BTL IV ONE (13:40)
[2020-09-08] MEDS: KCL 20 MEQ ERTAB PO SCH (15:00)
[2020-09-08 16:00] VITALS: BP 108/67
[2020-09-08 20:07] VITALS: BP 113/70
[2020-09-09 00:04] VITALS: BP 117/65
[2020-09-09] MEDS: 0.9%NACL 1000ML 1,000 ML IV SCH ×4 (04:00→23:35)
[2020-09-09 04:03] VITALS: BP 114/65
[2020-09-09 05:20] LABS: HEMATOCRIT 36.2 % (36-48); MEAN CORPUSCULAR HEMOGLOBIN 22.1 pg (27.0-33.0); MEAN CORPUSCULAR HGB CONC 29.3 g/dL (32.0-36.0); MEAN CORPUSCULAR VOLUME 75.6 fL (79-99); RED BLOOD CELL COUNT(AUTO) 4.79 MIL/uL (4.00-5.50); RED CELL DISTRIBUTION WIDTH 26.3 % (11.0-15.5); WHITE BLOOD COUNT (AUTO) 6.6 K/uL (4.8-10.8)
[2020-09-09] MEDS: ZOSYN 3.375GM+NS 50ML 50 ML IV SCH ×3 (06:08→20:57)
[2020-09-09 07:40] VITALS: BP 112/64
[2020-09-09] MEDS: ENOXAPARIN SODIUM 40 MG/0.4 ML SYRINGE SQ SCH (08:28)
[2020-09-09] MEDS: FAMOTIDINE 20MG VIAL IV SCH ×2 (08:28→20:55)
[2020-09-09] MEDS: IRON SUCROSE COMPLEX 300 MG in 0.9% NACL 250ML 250 ML IV SCH (08:29)
[2020-09-09 12:13] VITALS: BP 111/66
[2020-09-09] MEDS: FLUCONAZOLE 200 MG/NS 100 ML 100 ML IV SCH (12:55)
[2020-09-09] MEDS: KCL 20 MEQ ERTAB PO SCH (14:48)
[2020-09-09 17:25] VITALS: BP 116/65
[2020-09-09 20:00] VITALS: BP 115/72
[2020-09-10] VITALS: BP 110/64
[2020-09-10 04:00] VITALS: BP 123/66
[2020-09-10] MEDS: ZOSYN 3.375GM+NS 50ML 50 ML IV SCH ×3 (05:47→20:00)
[2020-09-10 06:42] LABS: HEMATOCRIT 36.6 % (36-48); MEAN CORPUSCULAR HEMOGLOBIN 22.5 pg (27.0-33.0); MEAN CORPUSCULAR HGB CONC 29.5 g/dL (32.0-36.0); MEAN CORPUSCULAR VOLUME 76.3 fL (79-99); RED BLOOD CELL COUNT(AUTO) 4.8 MIL/uL (4.00-5.50); RED CELL DISTRIBUTION WIDTH 27.1 % (11.0-15.5); WHITE BLOOD COUNT (AUTO) 6.9 K/uL (4.8-10.8)
[2020-09-10 07:00] LABS: ALBUMIN 2.6 g/dL (3.5-5.0); BILIRUBIN,TOTAL 0.6 mg/dL (0.2-1.0); CREATININE 0.7 mg/dL (0.5-1.5); POTASSIUM 3.5 mmol/L (3.5-5.1)
[2020-09-10] MEDS: 0.9%NACL 1000ML 1,000 ML IV SCH ×2 (07:34→14:23)
[2020-09-10 08:02] VITALS: BP 130/66
[2020-09-10] MEDS: ENOXAPARIN SODIUM 40 MG/0.4 ML SYRINGE SQ SCH (09:08)
[2020-09-10] MEDS: FAMOTIDINE 20MG VIAL IV SCH ×2 (09:08→20:00)
[2020-09-10] MEDS: IRON SUCROSE COMPLEX 300 MG in 0.9% NACL 250ML 250 ML IV SCH (09:13)
[2020-09-10 12:00] VITALS: BP 111/69
[2020-09-10] MEDS: FLUCONAZOLE 200 MG/NS 100 ML 100 ML IV SCH (13:18)
[2020-09-10] MEDS: KCL 20 MEQ ERTAB PO SCH (13:43)
[2020-09-10 16:23] VITALS: BP 133/75
[2020-09-10 20:01] VITALS: BP 138/77
[2020-09-11 00:07] VITALS: BP 128/57
[2020-09-11] MEDS: 0.9%NACL 1000ML 1,000 ML IV SCH ×2 (03:00→07:34)
[2020-09-11 04:17] VITALS: BP 117/70
[2020-09-11 05:43] LABS: BASOPHILS % (AUTO) 1.9 % (0.0-5.0); EOSINOPHILS % (AUTO) 4.1 % (0.0-8.0); HEMATOCRIT 34.4 % (36-48); LYMPHOCYTES % (AUTO) 37.7 % (21.0-51.0); MEAN CORPUSCULAR HEMOGLOBIN 22.3 pg (27.0-33.0); MEAN CORPUSCULAR HGB CONC 29.1 g/dL (32.0-36.0); MEAN CORPUSCULAR VOLUME 76.8 fL (79-99); MONOCYTES % (AUTO) 10.8 % (3.0-13.0); NEUTROPHILS % (AUTO) 45.1 % (40.0-77.0); PLATELET COUNT (AUTO) 283 K/uL (130-400); RED BLOOD CELL COUNT(AUTO) 4.48 MIL/uL (4.00-5.50); RED CELL DISTRIBUTION WIDTH 26.6 % (11.0-15.5); WHITE BLOOD COUNT (AUTO) 5.7 K/uL (4.8-10.8)
[2020-09-11 06:06] LABS: ALBUMIN 2.4 g/dL (3.5-5.0); BILIRUBIN,TOTAL 0.6 mg/dL (0.2-1.0); CREATININE 0.7 mg/dL (0.5-1.5); POTASSIUM 3.4 mmol/L (3.5-5.1); TOTAL PROTEIN, SERUM 7.5 g/dL (6.0-8.3)
[2020-09-11] MEDS: KCL 20 MEQ ERTAB PO PRN ×2 (06:44→09:39)
[2020-09-11] MEDS: KCL 20 MEQ ERTAB PO SCH (07:55)
[2020-09-11 08:56] VITALS: BP 119/70
[2020-09-11] MEDS: FAMOTIDINE 20MG VIAL IV SCH ×2 (09:38→20:23)
[2020-09-11] MEDS: IRON SUCROSE COMPLEX 300 MG in 0.9% NACL 250ML 250 ML IV SCH (09:38)
[2020-09-11] MEDS: ENOXAPARIN SODIUM 40 MG/0.4 ML SYRINGE SQ SCH (09:38)
[2020-09-11 12:00] VITALS: BP 125/76
[2020-09-11] MEDS: FLUCONAZOLE 200 MG/NS 100 ML 100 ML IV SCH (12:29)
[2020-09-11 17:02] VITALS: BP 130/84
[2020-09-11 20:07] VITALS: BP 138/74
[2020-09-12 00:17] VITALS: BP 123/71
[2020-09-12] MEDS: 0.9%NACL 1000ML 1,000 ML IV SCH ×4 (00:19→15:04)
[2020-09-12 04:05] VITALS: BP 132/82
[2020-09-12 08:00] VITALS: BP 124/65
[2020-09-12] MEDS: ENOXAPARIN SODIUM 40 MG/0.4 ML SYRINGE SQ SCH (09:17)
[2020-09-12] MEDS: FAMOTIDINE 20MG VIAL IV SCH ×2 (09:17→20:01)
[2020-09-12] MEDS: IRON SUCROSE COMPLEX 300 MG in 0.9% NACL 250ML 250 ML IV SCH (09:18)
[2020-09-12 12:00] VITALS: BP 114/82
[2020-09-12] MEDS: FLUCONAZOLE 200 MG/NS 100 ML 100 ML IV SCH (12:05)
[2020-09-12] MEDS: KCL 20 MEQ ERTAB PO SCH (15:03)
[2020-09-12 16:00] VITALS: BP 125/83
[2020-09-12 20:12] VITALS: BP 119/84
[2020-09-13] VITALS (7 sets, daily range): BP systolic 102–154; BP diastolic 52–91
[2020-09-13] MEDS: 0.9%NACL 1000ML 1,000 ML IV SCH ×3 (04:30→17:03)
[2020-09-13 06:09] LABS: HEMATOCRIT 36.2 % (36-48); MEAN CORPUSCULAR HEMOGLOBIN 22.8 pg (27.0-33.0); MEAN CORPUSCULAR HGB CONC 29.6 g/dL (32.0-36.0); RED BLOOD CELL COUNT(AUTO) 4.7 MIL/uL (4.00-5.50); RED CELL DISTRIBUTION WIDTH 27.1 % (11.0-15.5); WHITE BLOOD COUNT (AUTO) 6.8 K/uL (4.8-10.8)
[2020-09-13 06:30] LABS: ALBUMIN 2.5 g/dL (3.5-5.0); BILIRUBIN,TOTAL 0.5 mg/dL (0.2-1.0); CREATININE 0.7 mg/dL (0.5-1.5); MAGNESIUM 2.5 mg/dL (1.80-2.40); POTASSIUM 3.7 mmol/L (3.5-5.1); TOTAL PROTEIN, SERUM 7.9 g/dL (6.0-8.3)
[2020-09-13] MEDS: KCL 20 MEQ ERTAB PO PRN (06:47)
[2020-09-13] MEDS ORDERED: DIATR MEGLU/DIATRIZOATE SODIUM 30 ML BOTTLE ONE (08:41)
[2020-09-13] MEDS ORDERED: IOHEXOL 350 MG/ML 100ML INFUS..BTL IV ONE (08:41)
[2020-09-13] MEDS: ENOXAPARIN SODIUM 40 MG/0.4 ML SYRINGE SQ SCH (09:00)
[2020-09-13] MEDS: IRON SUCROSE COMPLEX 300 MG in 0.9% NACL 250ML 250 ML IV SCH (10:21)
[2020-09-13] MEDS: FAMOTIDINE 20MG VIAL IV SCH ×2 (12:19→19:58)
[2020-09-13] MEDS: KCL 20 MEQ ERTAB PO SCH ×2 (12:26→15:57)
[2020-09-13] MEDS: FLUCONAZOLE 200 MG/NS 100 ML 100 ML IV SCH (15:37)
[2020-09-14] MEDS: 0.9%NACL 1000ML 1,000 ML IV SCH ×3 (03:00→14:40)
[2020-09-14 04:20] VITALS: BP 132/69
[2020-09-14 05:54] LABS: HEMATOCRIT 34.6 % (36-48); MEAN CORPUSCULAR HGB CONC 29.2 g/dL (32.0-36.0); MEAN CORPUSCULAR VOLUME 78.6 fL (79-99); RED BLOOD CELL COUNT(AUTO) 4.4 MIL/uL (4.00-5.50); RED CELL DISTRIBUTION WIDTH 27.5 % (11.0-15.5)
[2020-09-14 06:11] LABS: ALBUMIN 2.5 g/dL (3.5-5.0); BILIRUBIN,TOTAL 0.5 mg/dL (0.2-1.0); CREATININE 0.7 mg/dL (0.5-1.5); POTASSIUM 3.3 mmol/L (3.5-5.1); TOTAL PROTEIN, SERUM 7.5 g/dL (6.0-8.3)
[2020-09-14] MEDS: KCL 20 MEQ ERTAB PO PRN ×3 (06:31→09:22)
[2020-09-14 08:05] VITALS: BP 126/70
[2020-09-14] MEDS: FAMOTIDINE 20MG VIAL IV SCH ×2 (08:59→20:06)
[2020-09-14] MEDS: ENOXAPARIN SODIUM 40 MG/0.4 ML SYRINGE SQ SCH (09:00)
[2020-09-14] MEDS: IRON SUCROSE COMPLEX 300 MG in 0.9% NACL 250ML 250 ML IV SCH (09:00)
[2020-09-14] MEDS: FLUCONAZOLE 200 MG/NS 100 ML 100 ML IV SCH (11:56)
[2020-09-14 12:37] VITALS: BP 126/70
[2020-09-14 16:27] VITALS: BP 115/73
[2020-09-14 20:11] VITALS: BP 122/56
[2020-09-15] VITALS (7 sets, daily range): BP systolic 105–127; BP diastolic 50–75
[2020-09-15] MEDS: 0.9%NACL 1000ML 1,000 ML IV SCH ×2 (02:15→13:54)
[2020-09-15 06:32] LABS: HEMATOCRIT 35.9 % (36-48); MEAN CORPUSCULAR HEMOGLOBIN 22.8 pg (27.0-33.0); MEAN CORPUSCULAR HGB CONC 29.2 g/dL (32.0-36.0); PLATELET COUNT (AUTO) 241 K/uL (130-400); RED CELL DISTRIBUTION WIDTH 27.3 % (11.0-15.5); WHITE BLOOD COUNT (AUTO) 6.2 K/uL (4.8-10.8)
[2020-09-15 06:46] LABS: ALBUMIN 2.5 g/dL (3.5-5.0); BILIRUBIN,TOTAL 0.5 mg/dL (0.2-1.0); CREATININE 0.6 mg/dL (0.5-1.5); MAGNESIUM 1.4 mg/dL (1.80-2.40); POTASSIUM 3.6 mmol/L (3.5-5.1); TOTAL PROTEIN, SERUM 7.2 g/dL (6.0-8.3)
[2020-09-15] MEDS: KCL 20 MEQ ERTAB PO PRN ×2 (06:50→07:05)
[2020-09-15] MEDS: KCL 20 MEQ ERTAB PO SCH (07:15)
[2020-09-15] MEDS: ENOXAPARIN SODIUM 40 MG/0.4 ML SYRINGE SQ SCH (08:53)
[2020-09-15] MEDS: FAMOTIDINE 20MG VIAL IV SCH ×2 (08:53→20:39)
[2020-09-15] MEDS: IRON SUCROSE COMPLEX 300 MG in 0.9% NACL 250ML 250 ML IV SCH (08:53)
[2020-09-15] MEDS: FLUCONAZOLE 200 MG/NS 100 ML 100 ML IV SCH (12:32)
[2020-09-15] MEDS: MAGNESIUM 2GM PREMIX 50ML 50 ML IV PRN (14:00)
[2020-09-16 04:08] LABS: HEMATOCRIT 34.9 % (36-48); MEAN CORPUSCULAR HGB CONC 29.5 g/dL (32.0-36.0); MEAN CORPUSCULAR VOLUME 78.1 fL (79-99); RED BLOOD CELL COUNT(AUTO) 4.47 MIL/uL (4.00-5.50); RED CELL DISTRIBUTION WIDTH 26.7 % (11.0-15.5); WHITE BLOOD COUNT (AUTO) 5.5 K/uL (4.8-10.8)
[2020-09-16 04:11] VITALS: BP 120/72
[2020-09-16 04:29] LABS: ALBUMIN 2.4 g/dL (3.5-5.0); BILIRUBIN,TOTAL 0.5 mg/dL (0.2-1.0); CREATININE 0.6 mg/dL (0.5-1.5); MAGNESIUM 1.7 mg/dL (1.80-2.40); POTASSIUM 3.5 mmol/L (3.5-5.1); TOTAL PROTEIN, SERUM 7.4 g/dL (6.0-8.3)
[2020-09-16] MEDS: KCL 20 MEQ ERTAB PO PRN ×2 (05:12→06:23)
[2020-09-16] MEDS: MAGNESIUM 2GM PREMIX 50ML 50 ML IV PRN (05:13)
[2020-09-16 08:29] VITALS: BP 114/70
[2020-09-16] MEDS: ENOXAPARIN SODIUM 40 MG/0.4 ML SYRINGE SQ SCH (08:35)
[2020-09-16] MEDS: FAMOTIDINE 20MG VIAL IV SCH ×2 (08:35→21:49)
[2020-09-16] MEDS: IRON SUCROSE COMPLEX 300 MG in 0.9% NACL 250ML 250 ML IV SCH (08:37)
[2020-09-16] MEDS: FLUCONAZOLE 200 MG/NS 100 ML 100 ML IV SCH (12:54)
[2020-09-16 13:10] VITALS: BP 125/67
[2020-09-16] MEDS: 0.9%NACL 1000ML 1,000 ML IV SCH ×3 (14:00→23:48)
[2020-09-16] MEDS: KCL 20 MEQ ERTAB PO SCH (14:02)
[2020-09-16 16:09] VITALS: BP 113/70
[2020-09-16 19:00] VITALS: BP 126/78
[2020-09-17] VITALS (7 sets, daily range): BP systolic 116–143; BP diastolic 58–83
[2020-09-17] MEDS: 0.9%NACL 1000ML 1,000 ML IV SCH ×2 (07:34→15:18)
[2020-09-17] MEDS: FAMOTIDINE 20MG VIAL IV SCH ×2 (08:31→20:02)
[2020-09-17] MEDS: IRON SUCROSE COMPLEX 300 MG in 0.9% NACL 250ML 250 ML IV SCH (08:32)
[2020-09-17] MEDS: ENOXAPARIN SODIUM 40 MG/0.4 ML SYRINGE SQ SCH (08:32)
[2020-09-17] MEDS: FLUCONAZOLE 200 MG/NS 100 ML 100 ML IV SCH (12:31)
[2020-09-17] MEDS: KCL 20 MEQ ERTAB PO SCH (15:21)
[2020-09-17] MEDS: ONDANSETRON 4MG INJ IV PRN (23:16)
[2020-09-18 04:37] VITALS: BP 115/64
[2020-09-18] MEDS: 0.9%NACL 1000ML 1,000 ML IV SCH ×3 (06:00→23:38)
[2020-09-18 06:21] LABS: HEMATOCRIT 37.1 % (36-48); MEAN CORPUSCULAR HEMOGLOBIN 23.4 pg (27.0-33.0); MEAN CORPUSCULAR HGB CONC 29.9 g/dL (32.0-36.0); MEAN CORPUSCULAR VOLUME 78.3 fL (79-99); RED BLOOD CELL COUNT(AUTO) 4.74 MIL/uL (4.00-5.50); RED CELL DISTRIBUTION WIDTH 26.8 % (11.0-15.5); WHITE BLOOD COUNT (AUTO) 7.2 K/uL (4.8-10.8)
[2020-09-18 06:24] LABS: CREATININE 0.7 mg/dL (0.5-1.5); POTASSIUM 3.8 mmol/L (3.5-5.1)
[2020-09-18 09:00] VITALS: BP 118/71
[2020-09-18] MEDS: FAMOTIDINE 20MG VIAL IV SCH ×2 (09:03→20:02)
[2020-09-18] MEDS: ENOXAPARIN SODIUM 40 MG/0.4 ML SYRINGE SQ SCH (09:04)
[2020-09-18] MEDS: IRON SUCROSE COMPLEX 300 MG in 0.9% NACL 250ML 250 ML IV SCH (09:17)
[2020-09-18 12:02] VITALS: BP 119/68
[2020-09-18] MEDS: FLUCONAZOLE 200 MG/NS 100 ML 100 ML IV SCH (12:48)
[2020-09-18] MEDS ORDERED: MAGNESIUM CITRATE 296 ML SOLUTION PO SCH ×2 (14:45→20:00)
[2020-09-18] MEDS: KCL 20 MEQ ERTAB PO SCH (15:51)
[2020-09-18 16:22] VITALS: BP 121/82
[2020-09-18] MEDS: ONDANSETRON 4MG INJ IV PRN (16:33)
[2020-09-18] MEDS ORDERED: BISACODYL 10 MG SUPP.RECT RC SCH (18:00)
[2020-09-18 19:00] VITALS: BP 134/78
[2020-09-18 23:09] LABS: POTASSIUM 3.8 mmol/L (3.5-5.1)
[2020-09-18 23:10] LABS: ALBUMIN 2.3 g/dL (3.5-5.0); BILIRUBIN,TOTAL 0.4 mg/dL (0.2-1.0); CREATININE 0.7 mg/dL (0.5-1.5); TOTAL PROTEIN, SERUM 7.4 g/dL (6.0-8.3)
[2020-09-19] VITALS: BP 129/74
[2020-09-19] MEDS ORDERED: BISACODYL 10 MG SUPP.RECT RC SCH
[2020-09-19 04:00] VITALS: BP 121/75
[2020-09-19 04:56] LABS: BASOPHILS % (AUTO) 1.4 % (0.0-5.0); EOSINOPHILS % (AUTO) 1.7 % (0.0-8.0); HEMATOCRIT 36.9 % (36-48); LYMPHOCYTES % (AUTO) 21.6 % (21.0-51.0); MEAN CORPUSCULAR HEMOGLOBIN 23.9 pg (27.0-33.0); MEAN CORPUSCULAR HGB CONC 30.6 g/dL (32.0-36.0); MONOCYTES % (AUTO) 15.5 % (3.0-13.0); NEUTROPHILS % (AUTO) 59.4 % (40.0-77.0); PLATELET COUNT (AUTO) 203 K/uL (130-400); RED BLOOD CELL COUNT(AUTO) 4.73 MIL/uL (4.00-5.50); RED CELL DISTRIBUTION WIDTH 27.3 % (11.0-15.5); WHITE BLOOD COUNT (AUTO) 7.1 K/uL (4.8-10.8)
[2020-09-19 05:31] LABS: ALBUMIN 2.4 g/dL (3.5-5.0); BILIRUBIN,TOTAL 0.5 mg/dL (0.2-1.0); CREATININE 0.7 mg/dL (0.5-1.5); POTASSIUM 3.4 mmol/L (3.5-5.1); TOTAL PROTEIN, SERUM 7.9 g/dL (6.0-8.3)
[2020-09-19] MEDS: 0.9%NACL 1000ML 1,000 ML IV SCH ×2 (07:34→15:21)
[2020-09-19] MEDS: FAMOTIDINE 20MG VIAL IV SCH ×2 (08:31→20:01)
[2020-09-19] MEDS: ENOXAPARIN SODIUM 40 MG/0.4 ML SYRINGE SQ SCH (08:31)
[2020-09-19] MEDS: IRON SUCROSE COMPLEX 300 MG in 0.9% NACL 250ML 250 ML IV SCH (08:31)
[2020-09-19 08:32] VITALS: BP 109/63
[2020-09-19] MEDS ORDERED: POTASSIUM CHLORIDE 20MEQ/100ML 100 ML IV PRN (09:45)
[2020-09-19] MEDS: ONDANSETRON 4MG INJ IV PRN ×2 (09:51→20:18)
[2020-09-19 12:33] VITALS: BP 115/62
[2020-09-19] MEDS: FLUCONAZOLE 200 MG/NS 100 ML 100 ML IV SCH (12:53)
[2020-09-19] MEDS: KCL 20 MEQ ERTAB PO SCH (15:19)
[2020-09-19 17:24] VITALS: BP 120/79
[2020-09-19 19:00] VITALS: BP 124/66
[2020-09-20] VITALS: BP 117/61
[2020-09-20] MEDS: 0.9%NACL 1000ML 1,000 ML IV SCH ×3 (00:17→23:34)
[2020-09-20 04:00] VITALS: BP 152/75
[2020-09-20 05:16] LABS: BASOPHILS % (AUTO) 0.8 % (0.0-5.0); EOSINOPHILS % (AUTO) 0.3 % (0.0-8.0); HEMATOCRIT 37.3 % (36-48); LYMPHOCYTES % (AUTO) 10.5 % (21.0-51.0); MEAN CORPUSCULAR HEMOGLOBIN 23.7 pg (27.0-33.0); MEAN CORPUSCULAR HGB CONC 30.3 g/dL (32.0-36.0); MEAN CORPUSCULAR VOLUME 78.2 fL (79-99); MONOCYTES % (AUTO) 10.6 % (3.0-13.0); PLATELET COUNT (AUTO) 177 K/uL (130-400); RED BLOOD CELL COUNT(AUTO) 4.77 MIL/uL (4.00-5.50); RED CELL DISTRIBUTION WIDTH 27.6 % (11.0-15.5); WHITE BLOOD COUNT (AUTO) 9.9 K/uL (4.8-10.8)
[2020-09-20 05:23] LABS: ALBUMIN 2.3 g/dL (3.5-5.0); BILIRUBIN,TOTAL 0.6 mg/dL (0.2-1.0); CREATININE 0.9 mg/dL (0.5-1.5); POTASSIUM 3.6 mmol/L (3.5-5.1); TOTAL PROTEIN, SERUM 7.5 g/dL (6.0-8.3)
[2020-09-20] MEDS: KCL 20 MEQ ERTAB PO SCH (07:15)
[2020-09-20] MEDS: FAMOTIDINE 20MG VIAL IV SCH ×2 (08:16→20:04)
[2020-09-20] MEDS: ONDANSETRON 4MG INJ IV PRN ×3 (08:16→23:49)
[2020-09-20] MEDS: IRON SUCROSE COMPLEX 300 MG in 0.9% NACL 250ML 250 ML IV SCH (08:17)
[2020-09-20] MEDS: ENOXAPARIN SODIUM 40 MG/0.4 ML SYRINGE SQ SCH (08:17)
[2020-09-20 09:20] VITALS: BP 118/65
[2020-09-20 12:00] VITALS: BP 106/61
[2020-09-20] MEDS: FLUCONAZOLE 200 MG/NS 100 ML 100 ML IV SCH (13:28)
[2020-09-20 17:29] VITALS: BP 105/68
[2020-09-20 19:00] VITALS: BP 119/69
[2020-09-21] VITALS (13 sets, daily range): BP systolic 101–143; BP diastolic 54–90
[2020-09-21] MEDS: 0.9%NACL 1000ML 1,000 ML IV SCH ×4 (04:30→16:14)
[2020-09-21 05:08] LABS: BASOPHILS % (AUTO) 0.7 % (0.0-5.0); EOSINOPHILS % (AUTO) 0.5 % (0.0-8.0); HEMATOCRIT 33.9 % (36-48); LYMPHOCYTES % (AUTO) 11.9 % (21.0-51.0); MEAN CORPUSCULAR HEMOGLOBIN 23.7 pg (27.0-33.0); MEAN CORPUSCULAR HGB CONC 30.7 g/dL (32.0-36.0); MEAN CORPUSCULAR VOLUME 77.2 fL (79-99); MONOCYTES % (AUTO) 10.4 % (3.0-13.0); NEUTROPHILS % (AUTO) 75.8 % (40.0-77.0); NUCLEATED RED BLOOD CELLS 0.2 % (0.0-0.19); PLATELET COUNT (AUTO) 162 K/uL (130-400); RED BLOOD CELL COUNT(AUTO) 4.39 MIL/uL (4.00-5.50); RED CELL DISTRIBUTION WIDTH 27.1 % (11.0-15.5)
[2020-09-21 05:33] LABS: BILIRUBIN,TOTAL 0.6 mg/dL (0.2-1.0); CREATININE 0.8 mg/dL (0.5-1.5); POTASSIUM 3.5 mmol/L (3.5-5.1)
[2020-09-21] MEDS: FAMOTIDINE 20MG VIAL IV SCH ×2 (08:15→21:37)
[2020-09-21] MEDS: ENOXAPARIN SODIUM 40 MG/0.4 ML SYRINGE SQ SCH (09:00)
[2020-09-21] MEDS ORDERED: FENTANYL CITRATE PF 50 MCG/1 ML 2ML VIAL ONE (09:32)
[2020-09-21] MEDS: IRON SUCROSE COMPLEX 300 MG in 0.9% NACL 250ML 250 ML IV SCH (11:13)
[2020-09-21] MEDS: ONDANSETRON 4MG INJ IV PRN (12:13)
[2020-09-21] MEDS: FLUCONAZOLE 200 MG/NS 100 ML 100 ML IV SCH (14:30)
[2020-09-21] MEDS: KCL 20 MEQ ERTAB PO SCH (16:14)
[2020-09-22] VITALS (7 sets, daily range): BP systolic 95–126; BP diastolic 63–81
[2020-09-22 05:03] LABS: BASOPHILS % (AUTO) 0.6 % (0.0-5.0); EOSINOPHILS % (AUTO) 0.2 % (0.0-8.0); HEMATOCRIT 36.6 % (36-48); MEAN CORPUSCULAR HEMOGLOBIN 23.7 pg (27.0-33.0); MEAN CORPUSCULAR HGB CONC 30.6 g/dL (32.0-36.0); MEAN CORPUSCULAR VOLUME 77.5 fL (79-99); MONOCYTES % (AUTO) 7.8 % (3.0-13.0); NEUTROPHILS % (AUTO) 79.6 % (40.0-77.0); NUCLEATED RED BLOOD CELLS 0.2 % (0.0-0.19); PLATELET COUNT (AUTO) 179 K/uL (130-400); RED BLOOD CELL COUNT(AUTO) 4.72 MIL/uL (4.00-5.50); RED CELL DISTRIBUTION WIDTH 27.6 % (11.0-15.5); WHITE BLOOD COUNT (AUTO) 12.4 K/uL (4.8-10.8)
[2020-09-22 05:33] LABS: ALBUMIN 2.1 g/dL (3.5-5.0); BILIRUBIN,TOTAL 0.6 mg/dL (0.2-1.0); CREATININE 0.8 mg/dL (0.5-1.5); POTASSIUM 3.5 mmol/L (3.5-5.1); TOTAL PROTEIN, SERUM 7.4 g/dL (6.0-8.3)
[2020-09-22] MEDS: 0.9%NACL 1000ML 1,000 ML IV SCH ×2 (07:34→15:34)
[2020-09-22] MEDS: FAMOTIDINE 20MG VIAL IV SCH ×2 (09:04→21:20)
[2020-09-22] MEDS: ENOXAPARIN SODIUM 40 MG/0.4 ML SYRINGE SQ SCH (09:04)
[2020-09-22] MEDS: IRON SUCROSE COMPLEX 300 MG in 0.9% NACL 250ML 250 ML IV SCH (10:21)
[2020-09-22] MEDS: FLUCONAZOLE 200 MG/NS 100 ML 100 ML IV SCH (13:01)
[2020-09-22] MEDS: KCL 20 MEQ ERTAB PO SCH (14:45)
[2020-09-22] MEDS: ONDANSETRON 4MG INJ IV PRN (15:02)
[2020-09-23 05:45] LABS: BASOPHILS % (AUTO) 0.6 % (0.0-5.0); EOSINOPHILS % (AUTO) 0.5 % (0.0-8.0); HEMATOCRIT 32.2 % (36-48); LYMPHOCYTES % (AUTO) 12.5 % (21.0-51.0); MEAN CORPUSCULAR HEMOGLOBIN 23.6 pg (27.0-33.0); MEAN CORPUSCULAR HGB CONC 30.7 g/dL (32.0-36.0); MEAN CORPUSCULAR VOLUME 76.7 fL (79-99); MONOCYTES % (AUTO) 10.7 % (3.0-13.0); PLATELET COUNT (AUTO) 125 K/uL (130-400); WHITE BLOOD COUNT (AUTO) 9.7 K/uL (4.8-10.8)
[2020-09-23 05:59] VITALS: BP 105/68
[2020-09-23 05:59] LABS: ALBUMIN 1.8 g/dL (3.5-5.0); ASPARTATE AMINOTRANSFERASE 22 U/L (10-37); BILIRUBIN,TOTAL 0.5 mg/dL (0.2-1.0); CARBON DIOXIDE 25 mmol/L (21-32); CHLORIDE 104 mmol/L (101-111); CREATININE 0.8 mg/dL (0.5-1.5); GLOMERULAR FILTR. RATE CALC 83 mL/min (>60); GLUCOSE,RANDOM 89 mg/dL (70-105); POTASSIUM 3.4 mmol/L (3.5-5.1); SODIUM SERUM 136 mmol/L (136-145); TOTAL PROTEIN, SERUM 6.5 g/dL (6.0-8.3); UREA NITROGEN, BLOOD 9 mg/dL (7-18)
[2020-09-23 06:15] LABS: ALANINE AMINOTRANSFERASE < 6 U/L (12-78)
[2020-09-23] MEDS: KCL 20 MEQ ERTAB PO PRN (06:58)
[2020-09-23] MEDS: 0.9%NACL 1000ML 1,000 ML IV SCH ×3 (07:34→15:34)
[2020-09-23 08:00] VITALS: BP 105/60
[2020-09-23] MEDS: FAMOTIDINE 20MG VIAL IV SCH (08:36)
[2020-09-23] MEDS: POTASSIUM CHLORIDE 10% ELIXIR 20 MEQ/15 ML UDCUP PO PRN (08:37)
[2020-09-23] MEDS: ENOXAPARIN SODIUM 40 MG/0.4 ML SYRINGE SQ SCH (08:37)
[2020-09-23] MEDS: IRON SUCROSE COMPLEX 300 MG in 0.9% NACL 250ML 250 ML IV SCH (08:38)
[2020-09-23] MEDS: FLUCONAZOLE 200 MG/NS 100 ML 100 ML IV SCH (11:29)
[2020-09-23] MEDS: KCL 20 MEQ ERTAB PO SCH (11:29)
[2020-09-23 12:00] VITALS: BP 126/74
[2020-09-23] MEDS ORDERED: LEVO750T46 PO (14:45)
[2020-09-23 16:00] VITALS: BP 105/72
== END 2020-09-23 17:00 | disposition home or self-care (01) | DRG 177 ==
LOC: EDH 18:57 → EDHIP 18:58 → 3DH 08-28 05:46 → EDHIP 08-28 07:30 → 3DH 08-28 09:25 → 3CH 08-30 10:35 → 4BH 08-30 18:27 → 4AH 09-06 04:25 → 2AH 09-21 04:24
PROVIDERS: ADMIT Internal Medicine; ATTEND Internal Medicine
PROC: 0W9J3ZZ Drainage of Pelvic Cavity, Percutaneous Approach (ICD-10-PCS; principal; 2020-09-21)
DX: U07.1 COVID-19 (principal); A41.9 Sepsis, unspecified organism; J12.82 Pneumonia due to coronavirus disease 2019; K65.1 Peritoneal abscess; E44.0 Moderate protein-calorie malnutrition; K57.20 Diverticulitis of large intestine with perforation and abscess without bleeding; N39.0 Urinary tract infection, site not specified; Z68.44 Body mass index [BMI] 60.0-69.9, adult; N83.202 Unspecified ovarian cyst, left side; E66.01 Morbid (severe) obesity due to excess calories; D50.9 Iron deficiency anemia, unspecified; R31.29 Other microscopic hematuria; N73.9 Female pelvic inflammatory disease, unspecified; E83.42 Hypomagnesemia; B96.20 Unspecified Escherichia coli [E. coli] as the cause of diseases classified elsewhere; E87.6 Hypokalemia; I10 Essential (primary) hypertension; E11.9 Type 2 diabetes mellitus without complications; R53.81 Other malaise; Z91.19 Patient's noncompliance with other medical treatment and regimen; Z83.3 Family history of diabetes mellitus; Z82.49 Family history of ischemic heart disease and other diseases of the circulatory system; Z74.01 Bed confinement status; Z90.49 Acquired absence of other specified parts of digestive tract; Z79.84 Long term (current) use of oral hypoglycemic drugs
CPT/HCPCS: 36415; 71045; 74176; 74177; 74178; 75989; 77012; 80048; 80053; 81001; 81025; 82948; 83540; 83550; 83735; 84145; 84443; 85025; 85027; 85045; 85378; 85610; 85651; 85730; 86140; 86850; 86900; 86901; 87040; 87071; 87076; 87077; 87088; 87186; 87205; 87426; 93005; G0378; J0780; J1200; J1450; J1650; J1756; J1885; J1956; J2270; J2405; J2543; J3010; J3475; J3480; J3490; J7030; J7050; Q9963; Q9967; U0003

== ENCOUNTER 2020-10-06 10:49 | Emergency (ER) | payer OTHER ==
[~2020-10-06 10:49] MED LIST: LEVO750T46 PO
== END 2020-10-06 13:10 | disposition home or self-care (01) ==
LOC: EDH 10:49
DX: R10.31 Right lower quadrant pain (principal); E11.9 Type 2 diabetes mellitus without complications; I10 Essential (primary) hypertension; K57.92 Diverticulitis of intestine, part unspecified, without perforation or abscess without bleeding; N70.93 Salpingitis and oophoritis, unspecified; Z90.49 Acquired absence of other specified parts of digestive tract; Z98.890 Other specified postprocedural states
CPT/HCPCS: 99281

== ENCOUNTER 2020-10-13 08:54 | Day surgery (SDC) | payer SELFPAY ==
[2020-10-11 11:23] LABS: BASOPHILS % (AUTO) 2.4 % (0.0-5.0); EOSINOPHILS % (AUTO) 6.4 % (0.0-8.0); HEMATOCRIT 39.2 % (36-48); LYMPHOCYTES % (AUTO) 36.1 % (21.0-51.0); MEAN CORPUSCULAR HEMOGLOBIN 25.2 pg (27.0-33.0); MEAN CORPUSCULAR HGB CONC 30.6 g/dL (32.0-36.0); MEAN CORPUSCULAR VOLUME 82.4 fL (79-99); MONOCYTES % (AUTO) 7.7 % (3.0-13.0); NEUTROPHILS % (AUTO) 46.9 % (40.0-77.0); PLATELET COUNT (AUTO) 235 K/uL (130-400); RED BLOOD CELL COUNT(AUTO) 4.76 MIL/uL (4.00-5.50)
[2020-10-11 11:36] LABS: CREATININE 0.7 mg/dL (0.5-1.5); POTASSIUM 3.9 mmol/L (3.5-5.1)
[2020-10-11 11:47] LABS: PROTHROMBIN TIME 10.9 SEC (9.6-11.6)
[2020-10-11 11:48] LABS: PARTIAL THROMBOPLASTIN TIME 27.4 SEC (26.3-35.5)
[2020-10-12 14:40] VITALS: BP 140/64
[~2020-10-13] VITALS: Ht 160 cm; Wt 144.7 kg
== END 2020-10-13 11:10 | disposition home or self-care (01) ==
LOC: DAH 08:54
PROVIDERS: ATTEND Surgery
DX: L02.11 Cutaneous abscess of neck (principal); Z79.01 Long term (current) use of anticoagulants
CPT/HCPCS: 36415; 72192; 80048; 82948; 85025; 85610; 85730; A4606; A4663; A6402